=== PATIENT | male | born 1990 | race Two or more races ===

== ENCOUNTER 2023-03-12 08:04 | Outpatient (AMB) | payer OTHER, SELFPAY ==
--- NOTE | 2023-03-12 08:18 | A.OFFPC_ITS ---
Vital Signs 03/12/23 08:20 Height 6 ft 4 in Weight 205 lb BMI 25.0 BP 116/80 Blood Pressure Location Lt brachial Position Sitting Pulse 57 Pulse Source Pulse Oximeter Pulse Oximetry (%) 98 Oxygen Delivery Method Room Air Intake Visit Reasons: [facility] 11/08 enlarge pancreas Intake Note: Patient here for [facility] [place]08 Elarged Pancreas, c/o varicose veins Crab Backer Required: No Crab Backer Name: Kika [id number] Accompanied by: Self / Same As Patient Allergies No Known Allergies Allergy (Verified 03/12/23 08:23) Tobacco use date assessed: 03/12/23 Dental Screening Dental Screen Date: 03/12/23 Did you have a dental visit in the last 12 months?: No Did you have a dental problem in the last 6 months where you did not have access to dental care?: No Was dental information given to patient?: Patient has dentist HPI HPI Comments History of Present Illness Details 32-year-old male new patient presents today to establish care. Patient was seen at [facility] emergency room in October 2022 for left upper quadrant abdominal pain x3 days and nausea. Lab work unremarkable patient was treated with Maalox, lidocaine famotidine and Zofran. Abdominal CT showed mild splenomegaly of unclear etiology. Mononucleosis testing was sent. Patient denies any nausea, vomiting, constipation diarrhea and denies any left upper quadrant pain. Patient reports large vein in leg x10 years and feels like its getting bigger. Denies any pain, no warmth on palpation. Patient requesting to see a vascular doctor to discuss removal. Patient also reports left inguinal hernia, denies any pain states has a lump there. Will place referral to general surgery for further evaluation of this. [facility] Surgical History History of hand surgery Family History Mother No problems noted. Father No problems noted. Social History Housing: House Alcohol intake: never Patient Tobacco Use Status: Never used Tobacco e-Cigarette/Vaping Use: Never Used Second Hand Smoke Exposure: No service: No Current occupational status: employed Current occupational exposures/hazards: No Cognitive needs: No Hearing needs: No Vision needs: No Questionnaire PHQ-9 Over the last 2 weeks, how often have you been bothered by any of the following problems? 1. Little interest or pleasure in doing things: not at all 2. Feeling down, depressed, or hopeless: not at all 3. Trouble falling or staying asleep, or sleeping too much: not at all 4. Feeling tired or having little energy: not at all 5. Poor appetite or overeating: not at all 6. Feeling bad about yourself - or that you are a failure or have let yourself or your family down: not at all 7. Trouble concentrating on things, such as reading the newspaper or watching television: not at all 8. Moving or speaking so slowly that other people could have noticed. Or the opposite - being so fidgety or restless that you have been moving around a lot more than usual: not at all 9. Thoughts that you would be better off or of hurting yourself in some way: not at all Total score: 0 Depression Screening Interpretation: Negative 64055 - PHQ-9 Billing: Yes Source: Developed by Drs. Axel Payne, Paulina Theodore, Alon Pichardo and colleagues, with an educational aditya from [employer]. Thrive Questionnaire Date Thrive assessed: 03/12/23 I am a: Patient What is your living situation today?: I have a steady place to live Within the past 12 months, did the food you bought not last and you didn't have the money to get more?: Never true Within the past 12 months, did you worry whether your food would run out before you got money to buy more?: Never true Do you have trouble paying for medicines?: No Do you have trouble getting transportation to medical appointments?: No Do you have trouble paying your heating and electricity bill?: No Do you have trouble taking care of your child, family member or friend?: No Do you have trouble with day-to-day activities such as bathing, preparing meals, shopping, managing finances, etc.?: No Are you currently unemployed and looking for a job?: No Are you interested in more education?: No Please select the resources that you would like help with: None Currently or been in a relationship where the following occur: no concerns reported AUDIT C Alcohol Use Questionnaire (AUDIT-C) 1. How often do you have a drink containing alcohol?: Never Total Score: 0 CRUZ-7 AMB Questionnaire CRZU-7 Date CRUZ - 7 assessed: 03/12/23 Feeling nervous, anxious, or on edge: 0 = Not at all Not being able to stop or control worryin = Not at all Worrying too much about different things: 0 = Not at all Trouble relaxin = Not at all Being so restless that it is hard to sit still: 0 = Not at all Becoming easily annoyed or irritable: 0 = Not at all Feeling afraid as if something awful might happen: 0 = Not at all Total CRUZ-7 score (0-4 normal; 5-9 mild; 10-14 moderate; 15-21 severe): 0 Source: Developed by Drs. Axel Payne, Paulina Theodore, Alon Pichardo and colleagues, with an educational aditya from [employer]. CRUZ-7 Assessment Billing CRUZ-7 Assessment Tool: CRUZ-7 Assessment 37246 Review of Systems Const Denies chills, Denies fatigue, Denies fever(s) and Denies poor appetite Eyes Denies no additional complaints ENT Reports Normal hearing present Card Denies chest pain, Denies syncope, Denies rapid heart rate and Denies dyspnea Resp Denies cough and Denies dyspnea GI Denies change in stool character, Denies constipation, Denies diarrhea, Denies nausea, Denies vomiting and Reports other (Hernia ) Denies dysuria, Denies urinary frequency and Denies urinary urgency Neuro Reports Normal hearing present, Denies confusion and Denies syncope Psych Denies confusion Endo Denies fatigue Physical exam (Primary Care) Vital Signs: Last Vital Signs Pulse 57 03/12/23 08:20 BP 116/80 03/12/23 08:20 Pulse Ox 98 03/12/23 08:20 Oxygen Delivery Method Room Air 03/12/23 08:20 BMI result Body Mass Index 25.0 Tobacco/Smoking Status: Tobacco use Status Tobacco use date assessed 03/12/23 03/12/23 08:29 Patient Tobacco Use Status Never used Tobacco 03/12/23 08:29 e-Cigarette/Vaping Use Never Used 03/12/23 08:29 PHQ-9: PHQ-9 Score PHQ-9: Total score 0 03/12/23 08:59 Depression Screening Interpretation: Negative Thrive Assessment: Date of Thrive Assessment Date Thrive assessed 03/12/23 03/12/23 08:29 Currently or been in a relationship where the following occur: no concerns reported Const General: No confusion Orientation/consciousness: No confusion HENMT Head: Yes normocephalic and Yes atraumatic Eyes Conjunctivae: conjunctivae normal Chest Chest palpation & inspection: normal inspection of the chest Resp Effort & Inspection: normal respiratory effort Auscultation: clear to auscultation bilaterally, no crackles, no rhonchi and no wheezes Cardio Rate: regular rate Rhythm: regular rhythm Heart sounds: S1 normal heart sound present and S2 normal heart sound present GI Inspection: Yes normal to inspection Palpation (GI): Soft to palpation, nontender, no hepatosplenomegaly and Hernia present direct inguinal on the left Neuro General: No confusion Cranial nerves: Yes Normal hearing present Extrem General: No edema Assessment and Plan Assessment & Plan (1) Phlebitis of left leg: Code(s): I80.3 - Phlebitis and thrombophlebitis of lower extremities, unspecified Plan: Referral inter to vascular surgery. (2) Left inguinal hernia: Code(s): K40.90 - Unilateral inguinal hernia, without obstruction or gangrene, not specified as recurrent Plan: Referral entered to general surgery. Plan Follow-up in a couple months for physical exam. Orders: Orders Comprehensive [place]. Panel Fast Today Z13.1 - Encounter for screening for diabetes mellitus Lipid Panel Today Z13.220 - Encounter for screening for lipoid disorders TSH reflex Free T4 Today Z13.29 - Encounter for screening for other suspected endocrine disorder Complete Blood Count Auto Diff Today Z13.0 - Encounter for screening for diseases of the blood and blood-forming organs and certain disorders involving the immune mechanism Referrals General Surgery Referral K40.90 - Unilateral inguinal hernia, without obstruction or gangrene, not specified as recurrent Vascular Surgery Referral K40.90 - Unilateral inguinal hernia, without obstruction or gangrene, not specified as recurrent Coding Level of Care Code New Pt Level 3 (39471) Diagnoses Phlebitis of left leg I80.3 Left inguinal hernia K40.90 Additional Codes CRUZ-7 Assessment Billing - CRUZ-7 Assessment Tool: CRUZ-7 Assessment 79646 ([id number])
[2023-03-12 08:20] VITALS: BP 116/80; PULSE 57; O2SAT 98; BMI 25.0
== END 2023-03-12 08:56 | disposition home or self-care (01) ==
PROVIDERS: PCP Internal Medicine; Visit Provider Nurse Practitioner Family
DX: I80.3 Phlebitis and thrombophlebitis of lower extremities, unspecified (principal); K40.90 Unilateral inguinal hernia, without obstruction or gangrene, not specified as recurrent
CPT/HCPCS: 99203

== ENCOUNTER 2023-03-12 09:02 | Outpatient (REF) | payer OTHER, SELFPAY ==
[2023-03-12 10:31] LABS: Basophils Percent Auto 0.4 % (0-2); Eosinophils Absolute Auto 0.1 X10*3/uL (0.0-0.4); Eosinophils Percent Auto 0.7 % (0-4); Hematocrit 42.7 % (42.0-52.0); Hemoglobin 14.2 g/dl (14.0-18.0); Imm Gran Abs Auto 0.01 X10*3/uL (0.00-0.03); Imm Gran Pct Auto 0.1 % (0.0-0.4); Lymphocytes Absolute Auto 1.8 X10*3/uL (1.2-4.9); Lymphocytes Percent Auto 26.9 % (20-40); MANUAL DIFF FLAG NO; Mean Corpuscular HGB Conc 33.3 g/dl (31.0-36.0); Mean Corpuscular Hemoglobin 29.8 pg (27.0-33.0); Mean Corpuscular Volume 89.5 fL (80.0-98.0); Mean Platelet Volume 10.9 fL (9.4-12.4); Monocytes Absolute Auto 0.4 X10*3/uL (0.1-1.2); Monocytes Percent Auto 5.7 % (2-11); Neutrophils Absolute Auto 4.4 x10*3/uL (2.0-8.3); Neutrophils Percent Auto 66.2 % (45-73); Platelet Count 182 X10*3/uL (160-400); Red Blood Count 4.77 X10*6/uL (4.60-5.80); Red Cell Distribution Width 12.8 % (11.0-16.0); White Blood Count 6.7 X10*3/uL (4.8-10.8)
[2023-03-12 11:10] LABS: Alanine Aminotransferase 17 U/L (0-40); Albumin Level 4.4 g/dL (3.5-5.0); Alkaline Phosphatase 48 U/L (39-117); Anion Gap 8 (12-20); Aspartate Amino Transferase 20 U/L (5-37); Bilirubin Total 0.7 mg/dL (0.0-1.0); Blood Urea Nitrogen 14 mg/dL (9-16); Calcium 9.3 mg/dL (8.4-10.2); Carbon Dioxide 32 mmol/L (22-29); Chloride 104 mmol/L (96-108); Cholesterol 148 mg/dL; Estimated Glomerular Filt Rate > 60; Glucose Fasting 78 mg/dL (60-99); HDL Cholesterol 47 mg/dL; LDL Cholesterol Calculated 90 mg/dl; Sodium 140 mmol/L (135-145); Total Protein 7.3 g/dL (6.5-8.0); Triglycerides 57 mg/dL
[2023-03-12 11:30] LABS: TSH reflex Free T4 1.51 uIU/mL (0.32-4.0)
== END 2023-03-12 09:03 | disposition home or self-care (01) ==
LOC: HO.LAB 09:02
PROVIDERS: PCP Internal Medicine; Visit Provider Nurse Practitioner Family
DX: Z13.0 Encounter for screening for diseases of the blood and blood-forming organs and certain disorders involving the immune mechanism (principal); Z13.220 Encounter for screening for lipoid disorders; Z13.29 Encounter for screening for other suspected endocrine disorder
CPT/HCPCS: 36415; 80053; 80061; 84443; 85025

== ENCOUNTER 2023-03-26 11:15 | Outpatient (AMB) | payer OTHER, SELFPAY ==
[2023-03-26 11:17] VITALS: BP 118/67; PULSE 38; BMI 25.3
--- NOTE | 2023-03-26 11:17 | MHC.OFFVIS ---
Intake Vital Signs 03/26/23 11:17 Height 6 ft 4 in Weight 208 lb BMI 25.3 BP 118/67 Blood Pressure Location Rt brachial Position Sitting Pulse 38 L Intake Visit Reasons: Unilateral inguinal hernia Intake Note: This patient presents for an assessment for left inguinal hernia repair. Patient c/o; left groin, denies pain. Deck Specialist Required: No Accompanied by: Self / Same As Patient Allergies No Known Allergies Allergy (Verified 03/26/23 11:24) HPI HPI Comments History of Present Illness Details Patient presents for evaluation of a longstanding symptomatic left inguinal hernia. He states that has entered into his scrotum. It is increasing in size, and painful. Patient has no other significant past medical or surgical history contributory.. Chart was reviewed patient evaluated. [facility] Surgical History History of hand surgery Family History Mother No problems noted. Father No problems noted. Social History Housing: House Alcohol intake: never Patient Tobacco Use Status: Never used Tobacco e-Cigarette/Vaping Use: Never Used Second Hand Smoke Exposure: No service: No Current occupational status: employed Current occupational exposures/hazards: No Cognitive needs: No Hearing needs: No Vision needs: No Physical Exam Vital Signs: Last Vital Signs Pulse 38 L 03/26/23 11:17 BP 118/67 03/26/23 11:17 BMI result Body Mass Index 25.3 Const Other: Tall thin well-developed male Chest Other: Chest breath sounds bilaterally, HS 1 in 2 GI Other: Patient was examined both supine and standing with Valsalva. Abdomen soft benign. Right groin negative. Genitalia within normal limits. Very large/complete/scrotal left inguinal hernia. Irreducible. Assessment & Plan Assessment & Plan (1) Left inguinal hernia: Code(s): K40.90 - Unilateral inguinal hernia, without obstruction or gangrene, not specified as recurrent Plan Risks, benefits, alternatives of open left inguinal hernia repair with mesh were reviewed with the patient and included but not limited to bleeding, infection, recurrence, numbness, pain, scarring, and the patient wishes to proceed. All questions were answered. Arrangements will be made for this. Coding Level of Care Code New Pt Level 5 (52598) Diagnoses Left inguinal hernia K40.90
== END 2023-03-26 11:37 | disposition home or self-care (01) ==
PROVIDERS: PCP Internal Medicine; Referring Provider Nurse Practitioner Family; Visit Provider Surgery
DX: K40.90 Unilateral inguinal hernia, without obstruction or gangrene, not specified as recurrent (principal)
CPT/HCPCS: 99204

== ENCOUNTER → 2023-03-26 11:15 | Outpatient (BNVA) | payer OTHER, SELFPAY | PROVIDERS: PCP Internal Medicine; Referring Provider Nurse Practitioner Family; Visit Provider Surgery ==

== ENCOUNTER 2023-04-02 08:16 | Day surgery (SDC) | payer OTHER, SELFPAY ==
--- NOTE | 2023-04-01 09:22 | HO.ANESPROP2 ---
Documented by User: Nu Bonds NP 04/01/23 09:23 HPI - Anesthesia Eval Consult details Narrative: 32yo M for Left Open Left Hernia Repair Inguinal w/ mesh PMFSH Active Problems Active Problems: All Active Problems (Updated 03/26/23 @ 11:36 by Ras Simmons MD) Phlebitis of left leg (Acute) Left inguinal hernia (Acute) Family History Family History Mother No problems noted. Father No problems noted. Surgical History Surgical History History of hand surgery Social History Social History Housing: House Alcohol intake: never Patient Tobacco Use Status: Never used Tobacco e-Cigarette/Vaping Use: Never Used Second Hand Smoke Exposure: No Are you DNR?: No Advance Directives: No Advance Directives Information Provided: Yes Nutrition Risks: No Nutritional Risk service: No Current occupational status: employed Current occupational exposures/hazards: No Cognitive needs: No Hearing needs: No Vision needs: No Meds Allergies Allergy/AdvReac Type Severity Reaction Status Date / Time No Known Allergies Allergy Verified 04/02/23 09:35 Exam Exam Date and Time: April 01, [id number] Pertinent Lab Results Pertinent Lab Results: Laboratory Tests 03/12/23 03/12/23 09:14 Unknown WBC 6.7 Hgb 14.2 Hct 42.7 Plt Count 182 Sodium 140 Potassium 4.0 Chloride 104 Carbon Dioxide 32 H BUN 14 Creatinine 0.82 Assessment and Plan Assessment Anesthesia Assessment: Chart Reviewed Documented by User: Latia Gutierrez MD 04/02/23 10:02 PMFSH Family History Family History Mother No problems noted. Father No problems noted. Surgical History Surgical History History of hand surgery History of Problems with Anesthesia: No Social History Social History Housing: House Alcohol intake: never Patient Tobacco Use Status: Never used Tobacco e-Cigarette/Vaping Use: Never Used Second Hand Smoke Exposure: No Are you DNR?: No Advance Directives: No Advance Directives Information Provided: Yes Nutrition Risks: No Nutritional Risk service: No Current occupational status: employed Current occupational exposures/hazards: No Cognitive needs: No Hearing needs: No Vision needs: No Meds Allergies Allergy/AdvReac Type Severity Reaction Status Date / Time No Known Allergies Allergy Verified 04/02/23 09:35 Exam Airway Mallampati Class: II TM Dist: >3cm Neck ROM: Full Loose/Missing/Broken Teeth: No Heart: RRR Lungs: CTA Assessment and Plan Assessment Anesthesia Assessment: Anesthesia Plan Discussed Final Anesthetic Review History of Problems with Anesthesia: No NPO: Yes ASA Class: I Final Preanesthetic Review: Meds/Allgs Chart Reviewed, Consent Obtained/Reviewed and Anes Risks/Benef Reviewed Patient Risk: Low Procedure Risk: Low Anesthetic Plan Anesthetic Plan: GA Disposition: Standard PACU
--- NOTE | 2023-04-01 09:41 | MHC.SHP ---
Pre-Procedural Eval Section A Date of Service: 04/01/23 The patient is an INPATIENT: No Changes since office visit: No Cold of Flu in the past 2 weeks, No New Medical Problems, No Changes in Medication and No Patient answered all questions The History & Physical has been completed within 30 days and I have reviewed it.: Yes Section B Chief Complaint: Unilateral inguinal hernia, without obstruction Allergies: Allergies Allergy/AdvReac Type Severity Reaction Status Date / Time No Known Allergies Allergy Verified 03/26/23 11:24 Plan I have reviewed the history and physical and performed a pertinent physical examination on my patient. No changes have occurred unless specified. Time Spent With Patient Time: Total time managing care of this patient today ____ minutes.
[2023-04-02] VITALS (9 sets, daily range): BP systolic 118–131; BP diastolic 68–80; PULSE 44–75; RESP 16–18; TEMP 36.4–36.8; O2SAT 97–99; BMI 25.3
[2023-04-02] MEDS: Lactated Ringers 1,000 ML 100 ML IVCONT (08:43)
--- NOTE | 2023-04-02 11:06 | W.PM.OPN ---
Operative Note Operative Note Date of Service: 04/02/23 Narrative: Preoperative diagnosis: [] Left large complete/scrotal inguinal hernia Postop diagnosis: [] Same Procedure [] left inguinal herniorrhaphy open with Bard mesh Surgeon: [] [place] Pharmacist Technician: [] Type of Anesthesia: [] General Indication for surgery: [] Left massive indirect complete/scrotal indirect hernia. No direct hernia demonstrated. Findings: [] Patient is brought to the operating room, placed on operative table in supine position, after adequate level of general anesthesia was induced, the left groin and scrotal area were prepped and draped in usual sterile fashion. Using a small left para- inguinal incision, this carried down through skin, subcutaneous tissue, Simón's fascia. External oblique fibers were opened their direction with care to isolate and preserve the iliohypogastric and ilioinguinal nerves throughout the procedure. Spermatic cord was identified and retracted from the field. No direct hernia was demonstrated. Exploration of the cord demonstrated a massive indirect hernia sac which extended into the scrotum. This was from the spermatic cord, and reduced. A Bard plug was placed in the indirect defect and this was sutured inferiorly to the inguinal ligament, and superiorly to the transversalis fascia using interrupted 0 Ethibond suture. At completion of procedure, mesh was in good position , covered the entire inguinal floor as well and internal ring admitted 1 fingertip. Wound was irrigated, secured hemostasis. Wound was closed in the following manner; external oblique fascia was closed using running 2-0 Vicryl suture. Simón's fascia was reapproximated using interrupted 3-0 Vicryl sutures. Interrupted inverted deep dermal 3-0 Vicryl sutures followed by running subcuticular 4-0 Vicryl sutures were placed. Steri-Strips and sterile dressings were applied. The wound was infiltrated with 0.5% Marcaine at completion. Ipsilateral testicle was intrascrotal at completion. Sponge, needle, and instrument counts were reported to be correct. Patient tolerated the procedure well and emerged from anesthesia stable condition. EBL minimal
== END 2023-04-02 13:20 | disposition home or self-care (01) ==
PROVIDERS: PCP Nurse Practitioner Family; Visit Provider Surgery
PROC: (CPT 49505; principal; 2023-04-02 10:50)
DX: K40.90 Unilateral inguinal hernia, without obstruction or gangrene, not specified as recurrent (principal)
CPT/HCPCS: 49505; C1781; J0690; J2250; J2795; J3010

== ENCOUNTER → 2023-04-02 08:16 | Outpatient (BNV) | payer OTHER, SELFPAY | PROVIDERS: PCP Nurse Practitioner Family; Visit Provider Surgery | DX: K40.20 Bilateral inguinal hernia, without obstruction or gangrene, not specified as recurrent (principal) | CPT/HCPCS: 49505 ==

== ENCOUNTER 2023-04-07 15:20 | Emergency (ER) | payer OTHER, SELFPAY ==
--- NOTE | ~2023-04-07 | US_ITS ---
EXAMINATION: US SCROTUM CLINICAL INFORMATION: Status post left scrotal hernia repair. Pain. Suspected abscess.. COMPARISON: None available. TECHNIQUE: A sonogram of the scrotum was performed assessing ni-scale appearance and color Doppler flow. Spectral Doppler analysis of the arterial and venous flow were performed in the testes bilaterally. FINDINGS: RIGHT: Right testicle measures 5.2 x 2.2 x 3.2 cm, volume 19.4 mL. No focal testicular parenchymal lesions are visualized. Spectral Doppler analysis of the arterial and venous flow is normal in the right testis. Right epididymal head is normal in size. No right hydrocele or varicocele is seen. Right epididymal Doppler flow is normal. LEFT: Left testicle measures 4.6 x 2.6 x 3.7 cm, volume 23 mL. No focal testicular parenchymal lesions are visualized. Spectral Doppler analysis of the arterial and venous flow is normal in the left testis. Left epididymal head is normal in size. Trace amount of left-sided hydrocele. No evidence of any varicocele. Left epididymal Doppler flow is normal. Within the superior part of the left hemiscrotum heterogeneous mixed echogenic solid-appearing structure is identified associated with predominantly peripheral increased vascularity. Given the history of recent surgery, may represent postsurgical changes including resolving hematoma and less likely to be evolving phlegmon. No definite evidence of any complex fluid collection to suspect abscess is noted. US/US scrotum IMPRESSION: 1. Nonspecific heterogeneous mixed echogenic solid-appearing structure is identified within the superior part of the left hemiscrotum with predominantly peripheral increased vascularity.Given the history of recent surgery, may represent postsurgical changes including resolving hematoma and less likely to be evolving phlegmon. No definite evidence of any complex fluid collection to suspect abscess is noted. 2. Small volume left-sided hydrocele. 3. Both testicles and epididymis morphologically appear unremarkable and show normal Doppler flow.
--- NOTE | ~2023-04-07 | US_ITS ---
EXAMINATION: US SCROTUM CLINICAL INFORMATION: Status post left scrotal hernia repair. Pain. Suspected abscess.. COMPARISON: None available. TECHNIQUE: A sonogram of the scrotum was performed assessing ni-scale appearance and color Doppler flow. Spectral Doppler analysis of the arterial and venous flow were performed in the testes bilaterally. FINDINGS: RIGHT: Right testicle measures 5.2 x 2.2 x 3.2 cm, volume 19.4 mL. No focal testicular parenchymal lesions are visualized. Spectral Doppler analysis of the arterial and venous flow is normal in the right testis. Right epididymal head is normal in size. No right hydrocele or varicocele is seen. Right epididymal Doppler flow is normal. LEFT: Left testicle measures 4.6 x 2.6 x 3.7 cm, volume 23 mL. No focal testicular parenchymal lesions are visualized. Spectral Doppler analysis of the arterial and venous flow is normal in the left testis. Left epididymal head is normal in size. Trace amount of left-sided hydrocele. No evidence of any varicocele. Left epididymal Doppler flow is normal. Within the superior part of the left hemiscrotum heterogeneous mixed echogenic solid-appearing structure is identified associated with predominantly peripheral increased vascularity. Given the history of recent surgery, may represent postsurgical changes including resolving hematoma and less likely to be evolving phlegmon. No definite evidence of any complex fluid collection to suspect abscess is noted. US/US scrotum doppler IMPRESSION: 1. Nonspecific heterogeneous mixed echogenic solid-appearing structure is identified within the superior part of the left hemiscrotum with predominantly peripheral increased vascularity.Given the history of recent surgery, may represent postsurgical changes including resolving hematoma and less likely to be evolving phlegmon. No definite evidence of any complex fluid collection to suspect abscess is noted. 2. Small volume left-sided hydrocele. 3. Both testicles and epididymis morphologically appear unremarkable and show normal Doppler flow.
[2023-04-07 16:28] VITALS: BP 117/78; PULSE 67; RESP 18; TEMP 36.7; O2SAT 99; BMI 24.3
--- NOTE | 2023-04-07 16:40 | ED.GENADULT ---
HPI - General Adult General Chief complaint: General Medical Stated complaint: Hernia surgery04/02 having pain Time Seen by Provider: 04/07/23 21:09 Source: patient Mode of arrival: ambulatory Limitations: no limitations History of Present Illness HPI narrative: Patient status post left hernia surgery with mesh placement on 04/02/2023 for last 2 days noticed increased swelling left scrotal area with increased pain no fever no chills Related Data Previous Rx's Medication Instructions Recorded hydrocodone 5 mg-acetaminophen 325 1 tab PO Q4-6H PRN pain #30 tabs 04/02/23 mg tablet ibuprofen 600 mg tablet 600 mg PO Q6H PRN fever or pain 04/07/23 #30 tabs Allergies Allergy/AdvReac Type Severity Reaction Status Date / Time No Known Allergies Allergy Verified 04/02/23 09:35 Review of Systems Review of Systems: Yes all other systems are reviewed and are negative [facility] Past Medical History Surgical History History of hand surgery History of hernia repair (~04/02/23) Family History Family History Mother No problems noted. Father No problems noted. Social History Social History Housing: House Alcohol intake: never Patient Tobacco Use Status: Never used Tobacco e-Cigarette/Vaping Use: Never Used Second Hand Smoke Exposure: No service: No Current occupational status: employed Current occupational exposures/hazards: No Cognitive needs: No Hearing needs: No Vision needs: No Physical Exam ED Vital Signs: Vital Signs - 24 hr 04/07/23 16:28 04/07/23 20:12 Temperature 98.1 F 98.1 F Pulse Rate 67 59 Respiratory Rate 18 18 Blood Pressure 117/78 117/70 Pulse Oximetry 99 100 Oxygen Delivery Method Room Air Room Air BMI result Body Mass Index 24.3 Appearance: Alert. Oriented X3. No acute distress. Eyes: PERRLA, No Nystagmus ENT: Pharynx normal. Oral Mucosa moist Neck: Normal inspection. Neck supple. CVS: Normal heart rate and rhythm. Pulses normal. Respiratory: No respiratory distress. Equal air entry bilateral, no wheezing/rales/rhonchi Abdomen: Soft and nontender. Bowel sounds are present, no mass palpable, no CVA tenderness : Ecchymosis and swelling of left scrotum, mild tenderness Skin: Skin warm and dry. Normal skin color. Normal skin turgor. Extremities: No lower extremity edema. No calf tenderness Neuro: Oriented X 3. No motor deficit. Course Course Course Narrative: RME: 32 yold male presents to the ED left scrotal discomfort. patient is s/p scrotal/groin hernia repair. hernia wound in wound appears healhty and healing. labs and scrotal ultrasoun doredered Medications Administered Discontinued Medications Generic Name Dose Route Start Last Admin Trade Name Freq PRN Reason Stop Dose Admin Ketorolac Tromethamine 30 mg 04/07/23 21:56 04/07/23 22:06 Ketorolac Tromethamine 30 Mg/Ml Vial IVPUSH 04/07/23 21:57 30 mg ONCE ONE Administration Medical Decision Making Medical Decision Making [facility] Narrative: Ultrasound showed postop changes white counts normal no signs of infection patient advised to follow with surgeon Differential Diagnosis Hematoma/abscess/epididymitis Lab Data [facility] Lab Attestation statement: I reviewed the patient's lab results. 04/07/23 16:49 04/07/23 16:49 Labs: Lab Results 04/07/23 04/07/23 Range/Units 16:49 16:49 WBC 6.8 (4.8-10.8) X10*3/uL RBC 5.12 (4.60-5.80) X10*6/uL Hgb 14.9 (14.0-18.0) g/dl Hct 44.0 (42.0-52.0) % MCV 85.9 (80.0-98.0) fL MCH 29.1 (27.0-33.0) pg MCHC 33.9 (31.0-36.0) g/dl RDW 12.5 (11.0-16.0) % Plt Count 205 (160-400) X10*3/uL MPV 10.1 (9.4-12.4) fL Immature Gran % (Auto) 0.3 (0.0-0.4) % Neut % (Auto) 67.1 (45-73) % Lymph % (Auto) 23.5 (20-40) % [place] % (Auto) 7.9 (2-11) % Eos % (Auto) 0.9 (0-4) % Baso % (Auto) 0.3 (0-2) % Lymph # (Auto) 1.6 (1.2-4.9) X10*3/uL [place] # (Auto) 0.5 (0.1-1.2) X10*3/uL Eos # (Auto) 0.1 (0.0-0.4) X10*3/uL Baso # (Auto) 0.0 (0.0-0.2) X10*3/uL Abs Immat Gran (auto) 0.02 (0.00-0.03) X10*3/uL Absolute Neuts (auto) 4.6 (2.0-8.3) x10*3/uL Absolute Nucleated RBC 0.000 (0.0-0.012) X10*3/uL Nucleated RBC % (auto) 0.0 (0.0-0.2) /100WBC Sodium 141 (135-145) mmol/L Potassium 4.6 (3.3-5.1) mmol/L Chloride 105 (96-108) mmol/L Carbon Dioxide 26 (22-29) mmol/L Anion Gap 15 (12-20) BUN 17 H (9-16) mg/dL Creatinine 0.89 (0.5-1.4) mg/dL Estim Creat Clear Calc 146.2 Estimated GFR > 60 Random Glucose 87 (60-115) mg/dL Calcium 9.8 (8.4-10.2) mg/dL Total Bilirubin 0.4 (0.0-1.0) mg/dL AST 15 (5-37) U/L ALT 14 (0-40) U/L Alkaline Phosphatase 54 (39-117) U/L Total Protein 7.8 (6.5-8.0) g/dL Albumin 4.4 (3.5-5.0) g/dL Radiology Impression Discussion of test interpretation with radiology: I have reviewed the radiologist's reading. Radiologist Impression: US/US scrotum doppler IMPRESSION: ? 1. Nonspecific heterogeneous mixed echogenic solid-appearing structure is identified within the superior part of the left hemiscrotum with predominantly peripheral increased vascularity.Given the history of recent surgery, may represent postsurgical changes including resolving hematoma and less likely to be evolving phlegmon. No definite evidence of any complex fluid collection to suspect abscess is noted. 2. Small volume left-sided hydrocele. 3. Both testicles and epididymis morphologically appear unremarkable and show normal Doppler flow. Discharge Plan Discharge Clinical Impression: Seroma, post-traumatic Patient Disposition: Home, Self-Care Instructions: Seroma (DC) Additional Instructions: The swelling of your scrotum is from the surgery and the fluid collection which will go way off its own with time Continue taking her pain medication Do not stand for long hours Take ibuprofen for increased pain Prescriptions: New ibuprofen 600 mg tablet 600 mg PO Q6H PRN (Reason: fever or pain) Qty: 30 0RF No Action hydrocodone-acetaminophen 5-325 mg tablet 1 tab PO Q4-6H PRN (Reason: pain) Qty: 30 0RF Rx Instructions: Partial Fill upon patient request. Interventions: ED Discharge Assessment Last Done: 04/07/23 22:13 Discharge Date/Time: 04/07/23 22:14
[2023-04-07 16:54] LABS: MANUAL DIFF FLAG NO
[2023-04-07 16:55] LABS: Basophils Percent Auto 0.3 % (0-2); Eosinophils Absolute Auto 0.1 X10*3/uL (0.0-0.4); Eosinophils Percent Auto 0.9 % (0-4); Hemoglobin 14.9 g/dl (14.0-18.0); Imm Gran Abs Auto 0.02 X10*3/uL (0.00-0.03); Imm Gran Pct Auto 0.3 % (0.0-0.4); Lymphocytes Absolute Auto 1.6 X10*3/uL (1.2-4.9); Lymphocytes Percent Auto 23.5 % (20-40); Mean Corpuscular HGB Conc 33.9 g/dl (31.0-36.0); Mean Corpuscular Hemoglobin 29.1 pg (27.0-33.0); Mean Corpuscular Volume 85.9 fL (80.0-98.0); Mean Platelet Volume 10.1 fL (9.4-12.4); Monocytes Absolute Auto 0.5 X10*3/uL (0.1-1.2); Monocytes Percent Auto 7.9 % (2-11); Neutrophils Absolute Auto 4.6 x10*3/uL (2.0-8.3); Neutrophils Percent Auto 67.1 % (45-73); Platelet Count 205 X10*3/uL (160-400); Red Blood Count 5.12 X10*6/uL (4.60-5.80); Red Cell Distribution Width 12.5 % (11.0-16.0); White Blood Count 6.8 X10*3/uL (4.8-10.8)
[2023-04-07 17:13] LABS: Alanine Aminotransferase 14 U/L (0-40); Albumin Level 4.4 g/dL (3.5-5.0); Alkaline Phosphatase 54 U/L (39-117); Anion Gap 15 (12-20); Aspartate Amino Transferase 15 U/L (5-37); Bilirubin Total 0.4 mg/dL (0.0-1.0); Blood Urea Nitrogen 17 mg/dL (9-16); Calcium 9.8 mg/dL (8.4-10.2); Carbon Dioxide 26 mmol/L (22-29); Chloride 105 mmol/L (96-108); Creatinine Clr Calc Pharmacy 146.2; Estimated Glomerular Filt Rate > 60; Glucose Random 87 mg/dL (60-115); Potassium 4.6 mmol/L (3.3-5.1); Sodium 141 mmol/L (135-145); Total Protein 7.8 g/dL (6.5-8.0)
--- OUTSIDE RECORDS SUMMARY | 2023-04-07 17:24 | XMS_ITS | Continuity of Care Document ---
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 Name Role Phone Not on Staff, PCP Primary Care Physician Unavail able [place] [facility] [place]): [place] - 11/06/[address] [address]- Discharge Disposition: A-D/C Home Attending Physician: Hao Chanel MD Admitting Physician: Hao Chanel MD Referring Physician: Not on Staff, Referring MD Allergies, Adverse Reactions, Alerts No Known Medication Allergies Results Radiology Reports * Exam Date Time Procedure Performing Provider Status 11/06/22 1:[address] Abd/Pelvis W/ IV Contrast Only Harriett Rojas; Licha (Verified) Notes: (CT Abd/Pelvis W/ IV Contrast Only) Reason For Exam: LUQ abdominal pain;Other: RESULT: CT Abd/Pelvis W/ IV Contrast Only CT Abd/Pelvis W/ IV Contrast Only Hx of Present Illness: LUQ pain started x 1 week with abd bloating. No N V D. endorses chills. Unknown fever. No urinary issues. Last BM yesterday was normal for him. Pain worsens with eating. as we talk admits that pain is also L chest w radiation to the back TECHNIQUE: Spiral CT through the abdomen and pelvis with IV contrast formatted in 3 planes. 100 cc of Omnipaque 300 was administered intravenously. This study was performed without oral contrast. Weight-based protocol using automatic tube modulation was used to optimize exposure parameters. CTDIvol Body: 14.80 mGy, DLP Body: 806 mGy*cm. COMPARISON: None. FINDINGS: Machine Setter View Findings, Lines and Tubes: None. Visualized Chest: Lung bases are clear. No pleural effusion. The heart is normal in size. No pericardial effusion. Diaphragm: Normal. Liver: Enlarged measuring 21.3 cm. Gallbladder: No CT evidence of gallbladder pathology. Bile ducts: No biliary ductal dilation. Spleen: Mildly enlarged spleen measuring 13.2 cm (series 202:45). Pancreas: Normal. Adrenal glands: Normal. Kidneys and ureters: No hydronephrosis, stones, or suspicious masses. Bladder: Normal. Reproductive organs: Unremarkable. Stomach, small bowel, and large bowel: Normal. Appendix: Normal. Peritoneum and retroperitoneum: No ascites or pneumoperitoneum. No omental or mesenteric lesions. Lymph nodes: No enlarged lymph nodes. Blood vessels: Normal. No aneurysm. No evidence of venous thrombosis. Abdominal and pelvic wall: Small left fat-containing inguinal hernia. Bones: No acute abnormality. IMPRESSION: No acute process in the abdomen or pelvis. Hepatosplenomegaly with liver measuring 21.3 cm and the spleen measuring 13.2 cm. I have personally reviewed the images and I agree with this report. WSN: [id number] Ordering Physician: Cindi Johnson Dictated By: Larry Levi MD Dictated Date/Time: 11/06/22 7:28 am Reviewed By: Audi Maher MD Signed By: Audi Maher MD Signed Date/Time: 11/06/22 7:33 am Transcribed By: KHALIDA Transcribed Date/Time: 11/06/22 1:35 am Vital Signs Most recent to oldest [Reference Range]: 1 2 3 Oxygen Saturation [94-100 %] 100 % (11/06/22 4:37 AM) 100 % (11/06/22 2:46 AM) 100 % (11/05/22 8:46 PM) Pulse Rate [55-90 bpm] 52 bpm *L* (11/06/22 4:37 AM) 60 bpm (11/06/22 2:46 AM) 52 bpm *L* (11/05/22 8:46 PM) Blood Pressure [90-138/55-84 mm Hg] 115/97mm Hg (11/06/22 4:37 AM) 108/65mm Hg (11/06/22 2:46 AM) 112/62mm Hg (11/05/22 8:46 PM) Respiratory Rate [16-30 br/min] 18 br/min (11/05/22 8:46 PM) 16 br/min (11/05/22 11:56 AM) Temperature [96.8-100.4 DegF] 97.7 DegF (11/06/22 4:37 AM) 97.7 DegF (11/06/22 2:46 AM) 98.2 DegF (11/05/22 8:46 PM) Mode of Delivery (Oxygen) Room air (11/06/22 2:46 AM) Room air (11/05/22 8:46 PM) Room air (11/05/22 11:56 AM) Blood pressure sites Arm, right (11/06/22 4:37 AM) Arm, right (11/05/22 8:46 PM) Temperature Route Oral (11/06/22 4:37 AM) Oral (11/06/22 2:46 AM) Oral (11/05/22 8:46 PM) CT Abdomen and Pelvis W contrast IV * BHSP[facility]erscribe , CIS S: TRANSCRIBE Audi Maher MD B: VERIFY Gurmeet GIRALDO, Ahmed: SIGN Event Display: Result: Authored Date: CT Abd/Pelvis W/ IV Contrast Only Hx of Present Illness: LUQ pain started x 1 week with abd bloating. No N V D. endorses chills. Unknown fever. No urinary issues. Last BM yesterday was normal for him. Pain worsens with eating. as we talk admits that pain is also L chest w radiation to the back TECHNIQUE: Spiral CT through the abdomen and pelvis with IV contrast formatted in 3 planes. 100 cc of Omnipaque 300 was administered intravenously. This study was performed without oral contrast. Weight-based protocol using automatic tube modulation was used to optimize exposure parameters. CTDIvol Body: 14.80 mGy, DLP Body: 806 mGy*cm. COMPARISON: None. FINDINGS: Machine Setter View Findings, Lines and Tubes: None. Visualized Chest: Lung bases are clear. No pleural effusion. The heart is normal in size. No pericardial effusion. Diaphragm: Normal. Liver: Enlarged measuring 21.3 cm. Gallbladder: No CT evidence of gallbladder pathology. Bile ducts: No biliary ductal dilation. Spleen: Mildly enlarged spleen measuring 13.2 cm (series 202:45). Pancreas: Normal. Adrenal glands: Normal. Kidneys and ureters: No hydronephrosis, stones, or suspicious masses. Bladder: Normal. Reproductive organs: Unremarkable. Stomach, small bowel, and large bowel: Normal. Appendix: Normal. Peritoneum and retroperitoneum: No ascites or pneumoperitoneum. No omental or mesenteric lesions. Lymph nodes: No enlarged lymph nodes. Blood vessels: Normal. No aneurysm. No evidence of venous thrombosis. Abdominal and pelvic wall: Small left fat-containing inguinal hernia. Bones: No acute abnormality. IMPRESSION: No acute process in the abdomen or pelvis. Hepatosplenomegaly with liver measuring 21.3 cm and the spleen measuring 13.2 cm. I have personally reviewed the images and I agree with this report. WSN: [id number] Ordering Physician: Cindi Johnson Dictated By: Larry Levi MD Dictated Date/Time: 11/06/22 7:28 am Reviewed By: Audi Maher MD Signed By: Audi Maher MD Signed Date/Time: 11/06/22 7:33 am Transcribed By: KHALIDA Transcribed Date/Time: 11/06/22 1:35 am Patient Care team information Care Team Personnel Name: Not on Staff, PCP Position: [facility] Physician (General Medicine) Member Role: PCP Name: Óscar Joe MD Position: [facility] Resident Member Role: ED Resident Address: Address: [address] [place] [address]- Name: Hao Chanel MD Position: [facility] Resident Member Role: Admitting Physician Address: Address: [address] [place] [address] Care Team Related Persons Name: OLIVIA LIVINGSTON
[2023-04-07 20:12] VITALS: BP 117/70; PULSE 59; RESP 18; TEMP 36.7; O2SAT 100
[2023-04-07] MEDS: Ketorolac Tromethamine 30 MG/ML VIAL IVPUSH (22:06)
== END 2023-04-07 22:14 | disposition home or self-care (01) ==
PROVIDERS: Physician Assistant; Emergency Provider Internal Medicine; PCP Surgery
DX: L76.34 Postprocedural seroma of skin and subcutaneous tissue following other procedure (principal); N50.82 Scrotal pain; R10.2 Pelvic and perineal pain; Y83.9 Surgical procedure, unspecified as the cause of abnormal reaction of the patient, or of later complication, without mention of misadventure at the time of the procedure; Y81.3 Surgical instruments, materials and general- and plastic-surgery devices (including sutures) associated with adverse incidents; Z79.899 Other long term (current) drug therapy
CPT/HCPCS: 36415; 76870; 80053; 85025; 93975; 96374; 99284; J1885

== ENCOUNTER 2023-04-08 12:30 | Outpatient (AMB) | payer OTHER, SELFPAY ==
--- NOTE | 2023-04-08 12:39 | MHC.OFFVIS ---
Intake Intake Visit Reasons: S/P LIH w/mesh Allergies No Known Allergies Allergy (Verified 04/02/23 09:35) HPI HPI Comments History of Present Illness Details Patient presents for follow-up. Over the weekend, he was having some incisional discomfort actually went to the emergency room. There, he had extensive workup including CT scan was only demonstrated postop changes. On exam today, aside from incisional discomfort, patient is doing well. He has time his diet. He is having normal bowel habits. He is slowly but steadily increasing his activity level. [facility] Surgical History History of hand surgery History of hernia repair (~04/02/23) Family History Mother No problems noted. Father No problems noted. Social History Housing: House Alcohol intake: never Patient Tobacco Use Status: Never used Tobacco e-Cigarette/Vaping Use: Never Used Second Hand Smoke Exposure: No service: No Current occupational status: employed Current occupational exposures/hazards: No Cognitive needs: No Hearing needs: No Vision needs: No Physical Exam GI Other: Abdomen soft. Incision clean dry and intact healing uneventfully. Mild ecchymosis of the scrotum which was expected secondary to the scrotal/complete hernia which was dissected out of the scrotum at original surgery. Assessment & Plan Assessment & Plan (1) Left inguinal hernia: Code(s): K40.90 - Unilateral inguinal hernia, without obstruction or gangrene, not specified as recurrent Plan Patient is doing well. He has been given local instructions, and will follow-up p.r.n.. Coding Level of Care Code Global (93168) Diagnoses Left inguinal hernia K40.90
== END 2023-04-08 12:39 | disposition home or self-care (01) ==
LOC: HO.HGS 12:30
PROVIDERS: PCP Surgery; Visit Provider Surgery
DX: K40.90 Unilateral inguinal hernia, without obstruction or gangrene, not specified as recurrent (principal)
CPT/HCPCS: 99024

== ENCOUNTER → 2023-04-08 12:30 | Outpatient (BNVA) | payer OTHER, SELFPAY | PROVIDERS: PCP Surgery; Visit Provider Surgery ==

== ENCOUNTER 2023-05-25 16:23 | Emergency (ER) | payer OTHER, SELFPAY ==
[2023-05-25 16:32] VITALS: BP 117/73; PULSE 64; RESP 18; TEMP 36.6; O2SAT 97; BMI 25.9
--- NOTE | 2023-05-25 16:36 | ED.UPPEXIN ---
HPI - Extremity Injury (Upper) General Chief Complaint: Extremity Injury, Upper Stated Complaint: Injury left arm Time Seen by Provider: 05/25/23 16:44 Source: patient Mode of arrival: ambulatory Limitations: no limitations History of Present Illness HPI narrative: 32-year-old male [id number] here with complaints of left elbow pain after a [place] fall at the park today. Patient reports pain in the left elbow. Denies any associated weakness, numbness or tingling of extremity. Denies hitting head or loss of consciousness. Declined chief solution architect services Related Data Previous Rx's Medication Instructions Recorded hydrocodone 5 mg-acetaminophen 325 1 tab PO Q4-6H PRN pain #30 tabs 04/02/23 mg tablet ibuprofen 600 mg tablet 600 mg PO Q6H PRN fever or pain 04/07/23 #30 tabs Allergies Allergy/AdvReac Type Severity Reaction Status Date / Time No Known Allergies Allergy Verified 05/25/23 16:32 Review of Systems Review of Systems: Yes all other systems are reviewed and are negative Constitutional: Constitutional: Reports no additional constitutional complaints, Denies body ache(s), Denies chills, Denies fever(s), Denies headache(s) and Denies weakness Eyes: Eyes: Reports no additional eye complaints and Denies change in vision ENT: Reports system reviewed and no additional complaints, except as documented, Denies dizziness, Denies headache(s), Denies nasal congestion, Denies nasal discharge and Denies neck pain Cardiovascular: Cardiovascular: Reports no additional cardiovascular complaints, Denies chest pain, Denies leg edema and Denies dyspnea Respiratory: Respiratory: Reports no additional respiratory complaints, Denies cough and Denies dyspnea Gastrointestinal: Gastrointestinal: Reports no additional gastrointestinal complaints, Denies abdominal pain, Denies diarrhea, Denies nausea and Denies vomiting Genitourinary: Genitourinary: Denies urinary incontinence Musculoskeletal: Musculoskeletal: Reports no additional musculoskeletal complaints, Denies back pain, Reports arthralgias, Reports joint swelling, Reports limited range of motion, Denies neck pain, Denies numbness and Denies tingling Integumentary/Breasts: Skin/Breast: Reports system reviewed and no additional complaints, except as docu and Denies rash Neurologic: Reports system reviewed and no additional complaints, except as documented, Denies Abnormal speech present, Denies dizziness, Denies headache(s), Denies numbness, Denies tingling and Denies weakness [facility] Past Medical History Attestation statement: The following information was validated with the patient. Source: old records reviewed and nursing notes reviewed Surgical History History of hernia repair (~04/02/23) History of hand surgery Family History Family History Mother No problems noted. Father No problems noted. Social History Social History Housing: House Alcohol intake: never Patient Tobacco Use Status: Never used Tobacco e-Cigarette/Vaping Use: Never Used Second Hand Smoke Exposure: No Advance Directives: No Advance Directives Information Provided: No service: No Current occupational status: employed Current occupational exposures/hazards: No Cognitive needs: No Hearing needs: No Vision needs: No Physical Exam Vital Signs: Vital Signs: Last Vital Signs Temp 97.8 F 05/25/23 16:32 Pulse 64 05/25/23 16:32 Resp 18 05/25/23 16:32 BP 117/73 05/25/23 16:32 Pulse Ox 97 05/25/23 16:32 O2 Del Method Room Air 05/25/23 16:32 BMI result Body Mass Index 25.9 Const: General: cooperative, healthy appearing, comfortable and no acute distress Orientation/consciousness: patient oriented x3 Limitations: no limitations HEENT: Head: Yes normal to inspection Ears: hearing grossly normal bilaterally General nose exam: Normal external nose present Face and sinus: Yes normal facial exam Mouth: Normal oral and palatal mucosa present Throat: Yes posterior oropharynx normal Eyes: General: appearance normal, both eyes and all related structures Pupils: Equal, round and reactive pupils present Neck: Neck: Yes normal visual inspection Chest: Chest palpation & inspection: normal inspection of the chest Resp: Effort & Inspection: normal respiratory effort Auscultation: clear to auscultation bilaterally Cardio: Rate: regular rate Rhythm: regular rhythm Peripheral pulses: Peripheral pulses 2+ throughout GI: Inspection: Yes normal to inspection Palpation (GI): Soft to palpation and nontender Auscultation: normal bowel sounds Back/Spine/Pelvis: Thoracic/Lumbar Spine: thoracic and lumbar spine normal to inspection Skin: General skin exam: no rashes or lesions noted Neuro: General: patient oriented x3, no focal motor deficits and normal sensation to monofilament Cranial nerves: Yes Equal, round and reactive pupils present Cognition (Neuro): normal cognition Speech: No Abnormal speech present Gait exam (Neuro): Normal gait present Motor exam (neuro): 5/5 motor strength present throughout Extrem: Other: To the left elbow to the medial and lateral aspect there is tenderness and swelling. The there is limited flexion and extension due to pain per patient. There is no tenderness or limited range of motion over the proximal distal joints. There is distal sensation which is normal. There are normal radial and ulnar pulses. Course Course Course Narrative: This is an RME: Additional HPI, ROS, PE not included below will be deferred to primary provider. This is a 44-ollf-prk-Sinhala/nigerian speaking male presenting to the emergency department with a complaint of left elbow/forearm pain s/p trip and fall which occurred today. No head strike or LOC. Left elbow with moderate edema and exquisite TTP. Plan: XR L forearm, left elbow Reevaluation(s) Reevaluation #1: X-ray MPRESSION: Acute impacted radial neck fracture with associated joint effusion. patient placed in sugar-tong splint and given sling for home. Reviewed rice. Reviewed worrisome signs and symptoms when to return to the emergency room. Patient feels ibuprofen be adequate for pain control. I did recommend he alternate this with Tylenol. Medical Decision Making Medical Decision Making MDM Narrative: 32-year-old male [id number] here with complaints of left elbow pain after a trip and fall at the park today. Patient reports pain in the left elbow. Denies any associated weakness, numbness or tingling of extremity. Denies hitting head or loss of consciousness. To the left elbow to the medial and lateral aspect there is tenderness and swelling. The there is limited flexion and extension due to pain per patient. There is no tenderness or limited range of motion over the proximal distal joints. There is distal sensation which is normal. There are normal radial and ulnar pulses. Will obtain x-rays Differential Diagnosis Differential Diagnoses: The differential diagnosis associated with the presentation includes fracture, dislocation low concern for vascular injury Admission/Observation Consideration of admission/observation: Escalation of care including admission/observation considered low concern for vascular injury, complicated fracture, dislocation to suggest need for emergent orthopedic consultation Independent Interpretation I performed an independent interpretation of an: Plain X-Ray Interpretation: I independently reviewed the x-ray and agree with radiology report Radiology Impression Discussion of test interpretation with radiology: I have reviewed the radiologist's reading. Radiologist Impression: [address] [address] XRay Report Signed Patient: Saul Youngblood MR#: [id number] : 1990 Acct:[id number] Age/Sex: 32 / M ADM Date: 05/25/23 Loc: HO.ED Attending Dr: Ordering Physician: Marily Sahu Date of Service: 05/25/23 Procedure(s): XR elbow LT min 3V Accession Number(s): [id number] cc: Marily Sahu; Physician,Unknown ~ History: Pain status post fall. Exams: Left forearm 2 views left elbow 3 views FINDINGS: Clips about the wrist radially consistent previous surgery. No deformity of the radius or ulnar. There is an elbow joint effusion. Impacted radial neck fracture is acute. No definite radial head deformity. XR/XR elbow LT min 3V IMPRESSION: Acute impacted radial neck fracture with associated joint effusion. Tests considered The following testing was considered but not selected: no concern for vascular injury, complicated fracture or dislocation to required advanced imaging Prescription Management I considered prescription management with: Pain Medication patient feels ibuprofen will be adequate for pain control Procedures Orthopedic Splinting/Casting Injury #1: Side: left Upper Extremity Injury Location: forearm Upper Extremity Immobilizer: sling/shoulder immobilizer and sugar tong splint Discharge Plan Discharge Clinical Impression: Closed fracture of radial head Patient Disposition: Home, Self-Care Instructions: Arm Fracture in Adults (ED), Splint Care (ED) Additional Instructions: do not get the splint wet. Please use the sling when up and walking around. When you are sitting down take the sling off and elevate the arm. It take Motrin or Tylenol for pain as needed Call Orthopedics on Saturday is a set up an appointment Prescriptions: No Action hydrocodone-acetaminophen 5-325 mg tablet 1 tab PO Q4-6H PRN (Reason: pain) Qty: 30 0RF Rx Instructions: Partial Fill upon patient request. ibuprofen 600 mg tablet 600 mg PO Q6H PRN (Reason: fever or pain) Qty: 30 0RF Referrals: [facility] [place] Orth[facility] Surgeons [Provider Group] - 1 week
--- NOTE | 2023-05-25 16:51 | PC.NURSE ---
pt reports he was taking a walk when it started raining, he ran back to his car but slipped and fell on his left arm. Reports pain just below elbow on forearm. No pain in humerus or wrist at this time. CMS intact. Pt guarding arm against chest at this time with ice pack applied
== END 2023-05-25 18:25 | disposition home or self-care (01) ==
PROVIDERS: Emergency Provider Emergency Medicine
DX: S52.122A Displaced fracture of head of left radius, initial encounter for closed fracture (principal); W01.0XXA Fall on same level from slipping, tripping and stumbling without subsequent striking against object, initial encounter; M25.422 Effusion, left elbow; Y93.9 Activity, unspecified; Y92.830 Public park as the place of occurrence of the external cause; Y99.9 Unspecified external cause status
CPT/HCPCS: 29105; 73080; 73090; 99283; 99284

== ENCOUNTER 2023-06-18 08:31 | Outpatient (AMB) | payer OTHER, SELFPAY ==
[2023-06-18 08:39] VITALS: BP 136/72; PULSE 65; BMI 25.4
--- NOTE | 2023-06-18 08:39 | A.OFFVIS_ITS ---
Intake Vital Signs 06/18/23 08:39 Height 6 ft 4 in Weight 209 lb BMI 25.4 BP 136/72 Blood Pressure Location Rt brachial Position Sitting Pulse 65 Intake Visit Reasons: s/p LIH~ pain Intake Note: Patient here c/o pain on Lt upper groin area that started a month ago. Pain gets worse with physical activity. Sometimes pain when changing positions from lying to sitting. Sap Portal Architect Required: No Accompanied by: Self / Same As Patient Allergies No Known Allergies Allergy (Verified 06/18/23 08:41) HPI HPI Comments History of Present Illness Details Patient presents here status post sustaining a fall where he had a wrist injury and also has some incisional discomfort. He has approximately 2 months status post left inguinal hernia repair. Groin pain is improving. Patient has not noticed any bulge or swelling. He is tolerating a diet. He is having normal bowel habits. He is ambulating with no difficulties. [facility] Surgical History Left inguinal hernia (04/02/23) History of hernia repair (~04/02/23) History of hand surgery Family History Mother No problems noted. Father No problems noted. Social History Housing: House Alcohol intake: never Patient Tobacco Use Status: Never used Tobacco e-Cigarette/Vaping Use: Never Used Second Hand Smoke Exposure: No service: No Current occupational status: employed Current occupational exposures/hazards: No Cognitive needs: No Hearing needs: No Vision needs: No Physical Exam Vital Signs: Last Vital Signs Pulse 65 06/18/23 08:39 BP 136/72 06/18/23 08:39 BMI result Body Mass Index 25.4 GI Other: Patient was examined both supine and standing with Valsalva. Incision well healed. No evidence of any recurrence. No evidence of any infection. Extrem Other: Left upper extremity in sling and brace. Assessment & Plan Assessment & Plan (1) Left inguinal hernia: Onset Date: 04/02/23 Comment: Dr. Ras Simmons Code(s): K40.90 - Unilateral inguinal hernia, without obstruction or gangrene, not specified as recurrent Plan The present time, patient was reassured. No evidence of any recurrence or infection. This may be related to his fall but at the present time, no further intervention is required. Patient is to slowly increase his activity levels and will follow-up p.r.n.. Coding Level of Care Code Global (70664) Diagnoses Left inguinal hernia K40.90
== END 2023-06-18 08:44 | disposition home or self-care (01) ==
PROVIDERS: Visit Provider Surgery
DX: K40.90 Unilateral inguinal hernia, without obstruction or gangrene, not specified as recurrent (principal)
CPT/HCPCS: 99024

== ENCOUNTER → 2023-06-18 08:31 | Outpatient (BNVA) | payer OTHER, SELFPAY | PROVIDERS: Visit Provider Surgery ==

== ENCOUNTER 2023-06-20 09:06 | Outpatient (AMB) | payer OTHER, SELFPAY ==
--- NOTE | 2023-06-20 09:08 | A.OFFPC_ITS ---
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 Patient was seen by the surgeon for left inguinal hernia status post repair 04/02/2023 ER note left elbow pain tripped info fell noted swelling in the medial and lateral aspect of the elbow x-ray did show impacted radial head fracture with associated joint effusion left sling is. Earlier this year October 2022 had left upper quadrant pain diagnosis of hepatosplenomegaly 21.3 cm spleen is 13.2. states surgery is better [facility] ([id number]) interpret [facility]. asking about the liver and spleen- [facility] Surgical History (Updated 06/20/23 @ 09:38 by Vel Madrid MD) Left inguinal hernia (04/02/23) History of hernia repair (~04/02/23) History of hand surgery Family History Mother No problems noted. Father No problems noted. Social History Housing: House Alcohol intake: never Patient Tobacco Use Status: Never used Tobacco e-Cigarette/Vaping Use: Never Used Second Hand Smoke Exposure: No service: No Current occupational status: employed Current occupational exposures/hazards: No Cognitive needs: No Hearing needs: No Vision needs: No Questionnaire PHQ-9 Over the last 2 weeks, how often have you been bothered by any of the following problems? 1. Little interest or pleasure in doing things: not at all 2. Feeling down, depressed, or hopeless: not at all 3. Trouble falling or staying asleep, or sleeping too much: not at all 4. Feeling tired or having little energy: not at all 5. Poor appetite or overeating: not at all 6. Feeling bad about yourself - or that you are a failure or have let yourself or your family down: not at all 7. Trouble concentrating on things, such as reading the newspaper or watching television: not at all 8. Moving or speaking so slowly that other people could have noticed. Or the opposite - being so fidgety or restless that you have been moving around a lot more than usual: not at all 9. Thoughts that you would be better off or of hurting yourself in some way: not at all Total score: 0 Depression Screening Interpretation: Negative Depression Screening Done: Yes 33055 - PHQ-9 Billing: Yes Source: Developed by Drs. Axel Payne, Paulina Theodore, Alon Pichardo and colleagues, with an educational aditya from [employer]. Thrive Questionnaire Date Thrive assessed: 03/12/23 AUDIT C Alcohol Use Questionnaire (AUDIT-C) 1. How often do you have a drink containing alcohol?: Never Total Score: 0 CRUZ-7 AMB Questionnaire CRUZ-7 Date CRUZ - 7 assessed: 03/12/23 Source: Developed by Drs. Axel Payne, Paulina Theodore, Alon Pichardo and colleagues, with an educational aditya from [employer]. Physical exam (Primary Care) Vital Signs: Last Vital Signs Pulse 68 06/20/23 09:09 BP 116/72 06/20/23 09:09 Pulse Ox 98 06/20/23 09:09 Oxygen Delivery Method Room Air 06/20/23 09:09 Care Plan Goal for BP management: L arm on a sling hand cannot fully make a fist BMI result Body Mass Index 25.3 Tobacco/Smoking Status: Tobacco use Status Tobacco use date assessed 03/12/23 06/20/23 09:15 Patient Tobacco Use Status Never used Tobacco 06/20/23 09:15 e-Cigarette/Vaping Use Never Used 06/20/23 09:15 PHQ-9: PHQ-9 Score PHQ-9: Total score 0 06/20/23 09:15 Depression Screening Interpretation: Negative Thrive Assessment: Date of Thrive Assessment Date Thrive assessed 03/12/23 06/20/23 09:15 Const General: alert; No acute distress Eyes Conjunctivae: conjunctivae normal Resp Auscultation: clear to auscultation bilaterally Cardio Rate: regular rate Rhythm: regular rhythm GI Inspection: Yes normal to inspection Extrem Other: Left posterior calf has engorged varicose veins Assessment and Plan Assessment & Plan (1) Hepatosplenomegaly: Code(s): R16.2 - Hepatomegaly with splenomegaly, not elsewhere classified Plan: advised to get US requested to ff up (2) Fracture of radial neck, left, closed: Code(s): S52.132A - Displaced fracture of neck of left radius, initial encounter for closed fracture Plan: presently on a sling (3) Left inguinal hernia: Onset Date: 04/02/23 Comment: Dr. Ras Simmons 03/2023 Code(s): K40.90 - Unilateral inguinal hernia, without obstruction or gangrene, not specified as recurrent Plan: this is followed up by the Surgeon (4) Varicose veins of left lower leg: Code(s): I83.92 - Asymptomatic varicose veins of left lower extremity Plan: advised to call the vascular surgeon Orders: Orders US abdomen complete Today R16.2 - Hepatomegaly with splenomegaly, not elsewhere classified, R79.89 - Other specified abnormal findings of blood chemistry Referrals Orthopedics Referral S52.132A - Displaced fracture of neck of left radius, initial encounter for closed fracture Coding Level of Care Code Est Pt Level 4 (92808) Diagnoses Hepatosplenomegaly R16.2 Fracture of radial neck, left, closed S52.132A Left inguinal hernia K40.90 Varicose veins of left lower leg I83.92
[2023-06-20 09:09] VITALS: BP 116/72; PULSE 68; O2SAT 98; BMI 25.3
== END 2023-06-20 09:59 | disposition home or self-care (01) ==
PROVIDERS: PCP Internal Medicine; Visit Provider Internal Medicine
DX: R16.2 Hepatomegaly with splenomegaly, not elsewhere classified (principal); S52.132A Displaced fracture of neck of left radius, initial encounter for closed fracture; K40.90 Unilateral inguinal hernia, without obstruction or gangrene, not specified as recurrent; I83.92 Asymptomatic varicose veins of left lower extremity
CPT/HCPCS: 99214

== ENCOUNTER 2023-07-01 08:41 | Outpatient (REF) | payer OTHER, SELFPAY ==
--- NOTE | ~2023-07-01 | XR_ITS ---
EXAMINATION: XR ELBOW, LEFT CLINICAL INFORMATION: Pain in left elbow COMPARISON: 05/25/2023 TECHNIQUE: AP, lateral, and oblique views of the left elbow. FINDINGS: There is interval healing of radial neck fracture with fracture line is still visualized and there is mild callus formation. Soft tissue calcification seen adjacent to the radial head. There is mild joint effusion persists. XR/XR elbow LT min 3V IMPRESSION: Interval healing of radial neck fracture
== END 2023-07-01 08:42 | disposition home or self-care (01) ==
LOC: HO.HOSX 08:41
PROVIDERS: Visit Provider Physician Assistant
DX: S52.125A Nondisplaced fracture of head of left radius, initial encounter for closed fracture (principal)
CPT/HCPCS: 73080; 99202

== ENCOUNTER 2023-07-01 15:08 | Outpatient (AMB) | payer OTHER, SELFPAY ==
--- NOTE | 2023-07-01 15:25 | MHC.OFFVIS ---
Intake Vital Signs 07/01/23 15:26 Height 6 ft 4 in Weight 208 lb BMI 25.3 Intake Visit Reasons: fc- fracture of neck of left radius Intake Note: Saul diaz 33 year old right hand dominant male presents today for an ER follow up of left elbow, DOI 05/25/23. Patient reports that he tripped and fell on his left elbow. He presented to [facility] where xrays were taken, placed in a splint and referred to orthopedics. Patient currently complaining of mild pain. 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 He was seen at ED where x-rays were performed and he was referred to our office. He was also placed in a splint which he has been wearing since his DOI. He currently states he has mild pain in his elbow. [facility] Surgical History Left inguinal hernia (04/02/23) History of hernia repair (~04/02/23) History of hand surgery Family History Mother No problems noted. Father No problems noted. Social History Housing: House Alcohol intake: never Patient Tobacco Use Status: Never used Tobacco e-Cigarette/Vaping Use: Never Used Second Hand Smoke Exposure: No service: No Current occupational status: employed Current occupational exposures/hazards: No Cognitive needs: No Hearing needs: No Vision needs: No Review of Systems Const All systems reviewed & are unremarkable except as noted in HPI and below Physical Exam Vital Signs: BMI result Body Mass Index 25.3 Const General: cooperative and no acute distress Orientation/consciousness: patient oriented x3 Resp Effort & Inspection: normal respiratory effort and able to speak in complete sentences Cardio Peripheral pulses: Peripheral pulses 2+ throughout Neuro General: patient oriented x3 Extrem Other: Left elbow: Skin intact, no open wounds. Mild tenderness over the radial head. No pain over the olecranon. No difficulty with flexion or extension, mild discomfort with supination and pronation. No pain along the distal radius or proximal humerus. Sensation and peripheral pulses present. Office Procedures Fracture Care Fracture Billing Code: Fracture Billing Code Results Reviewed Results Reviewed: Xrays were obtained in the office today and personally reviewed by me of the left elbow show non displaced radial head fracture Assessment & Plan Assessment & Plan (1) Left radial head fracture: Code(s): S52.122A - Displaced fracture of head of left radius, initial encounter for closed fracture Qualifiers: Encounter type: initial encounter Fracture type: closed Fracture alignment: nondisplaced Qualified Code(s): S52.125A - Nondisplaced fracture of head of left radius, initial encounter for closed fracture Plan He is going to disc use of splint and sling. I strongly encouraged he work on gentle ROM and had put in an order for occupational therapy to do so. I did give him a card to contact them if he does not hear then by the end of the week. He should avoid any type of heavy lifting or forceful gripping or twisting motion and I would like to see him/her back in 6 weeks with new x-rays, sooner if needed. Orders: Orders OT Evaluation and Treatment Today S52.122A - Displaced fracture of head of left radius, initial encounter for closed fracture XR elbow LT min 3V Today M25.522 - Pain in left elbow Patient Instructions: Scribed for Jazmyne Traylor PA-C, by Luis James director of graduate medical education, on 07/01/2023 at 3:15 PM EST. IJazmyne PA-C, have personally reviewed and agree with the information entered by the scribe. Coding Level of Care Code New Pt Level 3 (62199) Diagnoses Closed nondisplaced fracture of head of left radius, initial encounter S52.125A Encounter type: initial encounter Fracture type: closed Fracture alignment: nondisplaced CPT Codes Fracture Care - Fracture Billing Code: Fracture Billing Code ([id number])
[2023-07-01 15:26] VITALS: BMI 25.3
== END 2023-07-01 15:48 | disposition home or self-care (01) ==
PROVIDERS: Visit Provider Physician Assistant
DX: S52.125A Nondisplaced fracture of head of left radius, initial encounter for closed fracture (principal); W01.0XXA Fall on same level from slipping, tripping and stumbling without subsequent striking against object, initial encounter
CPT/HCPCS: 99203

== ENCOUNTER 2023-07-22 07:52 | Outpatient (REF) | payer OTHER, SELFPAY ==
--- NOTE | ~2023-07-22 | US_ITS ---
EXAMINATION: US ABDOMEN COMPLETE CLINICAL INFORMATION: Other specified abnormal findings of blood chemistry. COMPARISON: None available. TECHNIQUE: Real-time imaging of the abdominal viscera. FINDINGS: PANCREAS: Normal. ABDOMINAL AORTA: The proximal, mid, and distal segments are normal in caliber. INFERIOR VENA CAVA: Visualized portions are normal. LIVER: Normal. The liver is normal in size. The liver contour is normal. Parenchymal echogenicity is normal. No focal hepatic lesion. There is no intrahepatic biliary duct dilatation seen. GALLBLADDER: Normal. The gallbladder is physiologically distended without evidence of stones, sludge, polyps, wall thickening or pericholecystic fluid. COMMON BILE DUCT: Normal in caliber measuring 0.4 cm in diameter. RIGHT KIDNEY: Normal. No hydronephrosis. No renal calculi or focal parenchymal lesions. The kidney measures 12.1 cm in maximum dimension. LEFT KIDNEY: Normal. No hydronephrosis. No renal calculi or focal parenchymal lesions. The kidney measures 12.5 cm in maximum dimension. SPLEEN: Normal. The spleen measures 13.0 cm in maximum dimension. FREE FLUID: None. US/US abdomen complete IMPRESSION: There is borderline splenomegaly. The examination is otherwise unremarkable.
== END 2023-07-22 07:53 | disposition home or self-care (01) ==
LOC: HO.US 07:52
PROVIDERS: PCP Internal Medicine; Visit Provider Internal Medicine
DX: R79.89 Other specified abnormal findings of blood chemistry (principal); R16.2 Hepatomegaly with splenomegaly, not elsewhere classified
CPT/HCPCS: 76700

== ENCOUNTER 2023-08-08 14:05 | Outpatient (AMB) | payer SELFPAY ==
[2023-08-08 14:05] VITALS: BMI 25.0
--- NOTE | 2023-08-08 14:05 | A.OFFVIS_ITS ---
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 Complaints include pain over varicosities, swelling of lower extremities, cramping, fatigue, and heaviness of the lower extremities. 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 It is noted more so in left leg. Patient denies any previous venous surgery or injections. Patient denies any history of DVT/ PE. Patient denies any history of phlebitis. Trial of compression includes - [id number] They now present for vascular evaluation regarding their varicose veins. [facility] Surgical History Left inguinal hernia (04/02/23) History of hernia repair (~04/02/23) History of hand surgery Family History Mother No problems noted. Father No problems noted. Social History Housing: House Alcohol intake: never Patient Tobacco Use Status: Never used Tobacco e-Cigarette/Vaping Use: Never Used Second Hand Smoke Exposure: No service: No Current occupational status: employed Current occupational exposures/hazards: No Cognitive needs: No Hearing needs: No Vision needs: No Review of Systems Const Reports as per HPI ENT Reports no additional complaints Card Denies chest pain, Denies chest pain at rest and Denies chest pain with activity Resp Denies chest congestion and Denies cough GI Reports no additional complaints Musc Details: pain over varicosities, aching of lower extremities, swelling, cramping, he aviness and tiredness, itching Denies abnormal gait Skin/Breast Reports pruritus and Denies wounds Neuro Reports no additional complaints and Denies abnormal gait Psych Denies no additional complaints Physical Exam Vital Signs: BMI result Body Mass Index 25.0 Const General: cooperative, healthy appearing and comfortable Orientation/consciousness: oriented to person, oriented to place and oriented to time Neck Carotids: no bruits Chest Chest palpation & inspection: normal inspection of the chest and normal pal pation of entire chest wall Resp Effort & Inspection: normal respiratory effort and able to speak in complete sentences Cardio Rate: regular rate Heart sounds: S1 normal heart sound present and S2 normal heart sound present Peripheral pulses: Peripheral pulses 2+ throughout GI Inspection: Yes normal to inspection Skin Other: +2 edema, large rope-like varicosities greater than 4 mm large cluster in left calf CEAP Classification C4 - skin color changes Ep - Etiology Primary As - superficial veins P - reflux General skin exam: dry skin Neuro General: oriented to person, oriented to place and oriented to time Extrem Right lower extremity: full ROM, normal capillary refill and edema Left lower extremity: full ROM, normal capillary refill and edema Psych Mental Status: mental status grossly normal Assessment & Plan Assessment & Plan (1) Varicose veins of left lower extremity with inflammation: Code(s): I83.12 - Varicose veins of left lower extremity with inflammation Plan: In short, the patient has evidence of venous insufficiency. I have discussed the pathophysiology with the patient. In addition I have provided informational material regarding venous disease to the patient. We have discussed conservative measures including compression, elevation, and exercise. I have also provided a handout regarding appropriate use of compression stoc kings and where to purchase good compression stockings as well. I have taken the liberty of ordering venous insufficiency testing with the patient. They will follow up with me after testing. The patient had an opportunity to ask questions regarding the treatment plan. All questions were answered. Imaging studies, laboratory studies and physical exam results were discussed and reviewed in detail. No major barriers to understanding were identified. The patient expressed understanding and agreement with the above treatment plan. The patient is aware they should contact our office by phone for worsening of the current condition or the appearance of new symptoms. Thank you for allowing me to participate in the vascular care of this patient. If you have any questions or concerns regarding the treatment for the above condition please do not hesitate to contact me. The office telephone contact is [phone]. This note is constructed using voice recognition software. While every effort has been made to ensure accuracy, sisal picker errors may have been included. Thank you for allowing me to participate in the care of your patient. Yours sincerely, Rico Lopez MD, FACS, R.P.V.I. Orders: Orders US venous duplex LE BI 1 Week I83.12 - Varicose veins of left lower extremity with inflammation Coding Level of Care Code New Pt Level 4 (09169) Diagnoses Varicose veins of left lower extremity with inflammation I83.12
== END 2023-08-08 14:34 | disposition home or self-care (01) ==
PROVIDERS: Visit Provider Surgery Vascular Surgery
DX: I83.12 Varicose veins of left lower extremity with inflammation (principal)
CPT/HCPCS: 99203

== ENCOUNTER → 2023-08-08 14:05 | Outpatient (BNVA) | payer OTHER, SELFPAY | PROVIDERS: Visit Provider Surgery Vascular Surgery | DX: I83.12 Varicose veins of left lower extremity with inflammation (principal) | CPT/HCPCS: 99202 ==

== ENCOUNTER 2023-08-14 06:38 | Outpatient (REF) | payer OTHER, SELFPAY | END 2023-08-14 06:39 | disposition home or self-care (01) | LOC: HO.HOSX 06:38 | PROVIDERS: Visit Provider Physician Assistant | DX: M25.522 Pain in left elbow (principal); S52.125D Nondisplaced fracture of head of left radius, subsequent encounter for closed fracture with routine healing; X58.XXXD Exposure to other specified factors, subsequent encounter; Y93.9 Activity, unspecified; Y92.9 Unspecified place or not applicable; Y99.8 Other external cause status | CPT/HCPCS: 73080; 99212 ==

== ENCOUNTER 2023-08-14 14:32 | Outpatient (AMB) | payer SELFPAY ==
--- NOTE | 2023-08-14 14:54 | A.OFFVIS_ITS ---
Intake Vital Signs 08/14/23 14:55 Height 6 ft 4 in Weight 205 lb BMI 25.0 Intake Visit Reasons: ov- left radial head fx w xrays Intake Note: Saul is a 33 year old male who presents today for a follow up of his left radial head fracture. Patient reports that he is doing well , he has some mild pain with increased activity but over all is doing very well. Allergies No Known Allergies Allergy (Verified 08/08/23 14:33) HPI ov- left radial head fx w xrays HPI Details 33-year-old male who returns to the [facility] today for a follow-up of left radial head fracture. He states he has mild pain in his elbow which is aggravated with activities. He is doing well overall , he is working with PT who recommends he continue working on strength before returning to work. 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 [facility] Surgical History Left inguinal hernia (04/02/23) History of hernia repair (~04/02/23) History of hand surgery Family History Mother No problems noted. Father No problems noted. Social History Housing: House Alcohol intake: never Patient Tobacco Use Status: Never used Tobacco e-Cigarette/Vaping Use: Never Used Second Hand Smoke Exposure: No service: No Current occupational status: employed Current occupational exposures/hazards: No Cognitive needs: No Hearing needs: No Vision needs: No Review of Systems Const All systems reviewed & are unremarkable except as noted in HPI and below Physical Exam Vital Signs: BMI result Body Mass Index 25.0 Const General: cooperative and no acute distress Orientation/consciousness: patient oriented x3 Resp Effort & Inspection: normal respiratory effort and able to speak in complete sentences Cardio Peripheral pulses: Peripheral pulses 2+ throughout Neuro General: patient oriented x3 Extrem Other: Left elbow: Skin intact, no open wounds.No tenderness over the radial head. No p ain over the olecranon. No difficulty with flexion or extension, no discomfort with supination and pronation. No pain along the distal radius or proximal humerus. Sensation and peripheral pulses present. Results Reviewed Results Reviewed: Xrays were obtained in the office today and personally reviewed by me of the left elbow show stable fx pattern with interval healing. Assessment & Plan Assessment & Plan (1) Left radial head fracture: Code(s): S52.122A - Displaced fracture of head of left radius, initial encounter for closed fracture Qualifiers: Encounter type: subsequent encounter Fracture alignment: nondisplaced Fracture type: closed Fracture healing: with routine healing Qualified Code(s): S52.125D - Nondisplaced fracture of head of left radius, subsequent encounter for closed fracture with routine healing Plan He will continue working with occupational therapy to improve his strength training and he will return to work in 4 weeks if he is asymptomatic and see us back as needed if symptoms arise. Orders: Orders XR elbow LT min 3V Today M25.522 - Pain in left elbow Patient Instructions: Scribed for Jazmyne Traylor PA-C, by Luis James director of medical services, on 08/14/2023 at 3:30 PM EST. I, Jazmyne Traylor PA-C, have personally reviewed and agree with the information entered by the scribe. Coding Level of Care Code Global (64155) Diagnoses Closed nondisplaced fracture of head of left radius with routine healing, subsequent encounter S52.125D Encounter type: subsequent encounter Fracture alignment: nondisplaced Fracture type: closed Fracture healing: with routine healing
[2023-08-14 14:55] VITALS: BMI 25.0
== END 2023-08-14 15:13 | disposition home or self-care (01) ==
PROVIDERS: Visit Provider Physician Assistant
DX: S52.125D Nondisplaced fracture of head of left radius, subsequent encounter for closed fracture with routine healing (principal)
CPT/HCPCS: 99213

== ENCOUNTER 2023-08-28 09:00 | Outpatient (RCR) | payer OTHER, SELFPAY ==
--- NOTE | 2023-07-25 15:20 | MHC.OT.EP ---
[address] [phone] Occupational Therapy Plan of Care Patient Name: Saul Youngblood Date of Evaluation: 07/25/23 Diagnosis: Displaced radial head fracture Pain Location: 0-6 ache proximal forearm Pain Score: 6 Pain Scale Used: Numeric (0 - 10) Aggravating Factors: Elbow exercise, use of left with daily activities Alleviating Factors: Avoiding Assessment: 8 wks , 5 days s/p left displaced RH fx due to a fall. Pt working on gentle ROM the past few wks with good improvement in ROM. Pain at end ranges and light use of left hand Today he presents with elbow stiffness, WFLs and decreased cisco administrator strength due to pain. He is using his left dominant hand with light activities . 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 Frequency and Duration: The patient will be seen 2 x wk x 4 wks Short Term Goals: Demo indep with HEP for LUE Use of left UE assist with all bimanual ADL and light-mod homemaking Left cisco administrator to > 35 lb Alf Goals: Pain free left elbow ROM at end ranges Left elbow extension to <7 deg Left elbow flexion to > 135 deg Left cisco administrator to > 50 lb Lift and carry up to 8 lb Report mild difficulty with daily task with modifications as needed Treatment Plan: Therapeutic Exercise Therapeutic Activity Home Exercise Program Patient Education ADL Training MHP Soft Tissue Mobilization Electronically Signed By: Annika Rick OT CHT CLT Please Sign and return to therapist. Thank you once again for your referral.
--- NOTE | 2023-08-08 08:57 | MHC.OT.OP ---
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 Elbow ROM is improved to WNL .Discomfort at end ranges, with gripping, lifting greater than 2 lb and partial wt bearing on left hand. 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 [ End ] Short Term Goals: Demo indep with HEP for LUE MET Use of left UE assist with all bimanual ADL and light-mod homemaking met Left anglesmith helper to > 35 lb met Fpc Goals: Pain free left elbow ROM at end ranges Left elbow extension to <7 deg Left elbow flexion to > 135 deg MET Left anglesmith helper to > 50 lb Lift and carry up to 8 lb Report mild difficulty with daily task with modifications as needed Frequency and Duration: The patient will be seen 1x wk Treatment Plan: Therapeutic Exercise Therapeutic Activity Home Exercise Program Patient Education Electronically Signed By: Annika Rick OT CHT CLT Reviewed/agree with student documentation: Therapist:
--- NOTE | 2023-08-28 11:17 | MHC.OT.DC ---
[address] [phone] F: [phone] Occupational Therapy Discharge Note Patient Name: Saul Youngblood Provider: Jazmyne Traylor Diagnosis: Displaced radial head fracture Date of Surgery: Date of Evaluation: 07/25/23 Date of Discharge: 08/28/23 Treatments to Date: 7 Cancellations to Date: 0 No Shows to Date: 0 Discharge Status: Achieved Goals Improved Function Independent with HEP Discharge Summary: Doing very well, reports no limitation at home and has returned to swimming and light gym exercise using pain as a guide. 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 He reports he is happy with his improvement and feels confident with his HEP . 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 OT goals met. Electronically Signed By: Annika Rick OT CHT CLT Reviewed/agree with student documentation: Therapist: Please Sign and return to therapist, thank you for your referral.
== END 2023-08-28 11:18 | disposition home or self-care (01) ==
LOC: HO.OT 09:00
PROVIDERS: PCP Internal Medicine; Visit Provider Physician Assistant
DX: S52.122A Displaced fracture of head of left radius, initial encounter for closed fracture (principal)
CPT/HCPCS: 97110; 97166

== ENCOUNTER 2023-09-20 08:19 | Outpatient (REF) | payer OTHER, SELFPAY ==
--- NOTE | ~2023-09-20 | US_ITS ---
EXAMINATION: US LOWER EXTREMITY VENOUS (REFLUX EXAM), BILATERAL CLINICAL INDICATION: Chronic venous insufficiency with lower extremity varicose veins with inflammation COMPARISON: None. TECHNIQUE: Color flow triplex imaging and compression Doppler was performed to evaluate both the deep and the superficial systems bilaterally. To evaluate the superficial system, the examination was performed in the upright position. Color-flow Doppler ultrasound and compression ultrasound were utilized. In addition, maneuvers were utilized to demonstrate reflux. FINDINGS: 1. DEEP VENOUS ULTRASOUND OF THE RIGHT LOWER EXTREMITY: Common Femoral Vein: Compressible, normal respiratory variation and augmented flow. Femoral Vein: Compressible, normal color flow and augmentation. Popliteal Vein: Compressible, normal augmentation. Deep Reflux: There is no evidence of reflux in the deep system in either the common femoral vein, superficial femoral or the popliteal vein. There is no evidence of a Rodriguez's cyst. 2. SUPERFICIAL ULTRASOUND WITH DOPPLER OF RIGHT LOWER EXTREMITY: GREAT SAPHENOUS VEIN: Saphenofemoral Junction: 0.7 cm; Reflux: 0 ms Proximal Thigh: 0.4 cm; Reflux: 2148 ms Mid Thigh: 0.2 cm; Reflux: 2560 ms Above Knee: 0.2 cm; Reflux: 2584 ms At Knee: 0.4 cm; Reflux: 0 ms Below Knee: 0.5 cm; Reflux: 0 ms Mid Calf: 0.2 cm; Reflux: 0 ms Ankle: 0.3 cm; Reflux: 0 ms DUPLICATED MEDIAL GREAT SAPHENOUS VEIN: Diameter: None imaged Reflux: NA DUPLICATED LATERAL GREAT SAPHENOUS VEIN: Diameter: None imaged Reflux: NA SMALL SAPHENOUS VEIN: Saphenopopliteal Junction: 0.4 cm; Reflux: 0 ms Proximal: 0.3 cm; Reflux: 0 ms Distal: 0.2 cm; Reflux: 0 ms VEIN OF GIACOMINI: Size: NA Reflux: NA PERFORATORS: Location: None significant Size: NA Reflux: NA VARICOSITIES: Location: None imaged Size: NA Reflux: NA 3. DEEP VENOUS ULTRASOUND OF THE LEFT LOWER EXTREMITY: Common Femoral Vein: Compressible, normal respiratory variation and augmented flow. Femoral Vein: Compressible, normal color flow and augmentation. Popliteal Vein: Compressible, normal augmentation. Deep Reflux: There is severe deep venous reflux within the common femoral vein, mid superficial femoral vein and popliteal vein ranging from 1280 ms to 3204 ms There is no evidence of a Rodriguez's cyst. 4. SUPERFICIAL ULTRASOUND WITH DOPPLER OF LEFT LOWER EXTREMITY: GREAT SAPHENOUS VEIN: Saphenofemoral Junction: 0.8 cm; Reflux: 0 ms Proximal Thigh: 0.5 cm; Reflux: 0 ms Mid Thigh: 0.3 cm; Reflux: 0 ms Above Knee: 0.4 cm; Reflux: 0 ms At Knee: 0.3 cm; Reflux: 0 ms Below Knee: 0.3 cm; Reflux: 0 ms Mid Calf: 0.2 cm; Reflux: 0 ms Ankle: 0.2 cm; Reflux: 0 ms DUPLICATED MEDIAL GREAT SAPHENOUS VEIN: Diameter: None imaged Reflux: NA DUPLICATED LATERAL GREAT SAPHENOUS VEIN: Diameter: None imaged Reflux: NA SMALL SAPHENOUS VEIN: Saphenopopliteal Junction: 1.2 cm; Reflux: 2980 ms Proximal: 1.2 cm; Reflux: 3032 ms Distal: 0.8 cm; Reflux: 2144 ms VEIN OF GIACOMINI: Size: NA Reflux: NA PERFORATORS: Location: Mid calf Size: 0.3 Reflux: None VARICOSITIES: Location: Medial and posterior calf off the small saphenous vein and great saphenous vein Size: Ranging in size from 0.3 to 1.4 cm Reflux: Ranging from 1952 ms to 2428 ms US/US venous duplex LE BI IMPRESSION: Right: Segmental areas of reflux within the right great saphenous vein within the thigh as described above Left: Severe reflux throughout the deep veins of the left lower extremity. Severe reflux throughout the small saphenous vein. Multiple large branching varicose veins within the calf as described above
== END 2023-09-20 08:20 | disposition home or self-care (01) ==
LOC: HO.US 08:19
PROVIDERS: Visit Provider Surgery Vascular Surgery
DX: I83.12 Varicose veins of left lower extremity with inflammation (principal)
CPT/HCPCS: 93970

== ENCOUNTER 2023-10-10 10:49 | Outpatient (AMB) | payer OTHER, SELFPAY ==
[2023-10-10 10:50] VITALS: BP 120/72; PULSE 53; O2SAT 97; BMI 26.0
--- NOTE | 2023-10-10 10:50 | A.OFFPC_ITS ---
Vital Signs 3 10/10/23 10:50 Height 6 ft 4 in Weight 214 lb BMI 26.0 BP 120/72 Blood Pressure Location Lt brachial Position Sitting Pulse 53 Pulse Source Pulse Oximeter Pulse Oximetry (%) 97 Oxygen Delivery Method Room Air Intake Visit Reasons: Annual Exam Intake Note: Patient is here today for a physical. 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 Allergies No Known Allergies Allergy (Verified 10/10/23 10:51) Medication List - Last Reconciled 10/10/23 by Vel Madrid MD No Known Home Meds Tobacco use date assessed: 10/10/23 Dental Screening Dental Screen Date: 10/10/23 Did you have a dental visit in the last 12 months?: Yes Did you have a dental problem in the last 6 months where you did not have access to dental care?: No Was dental information given to patient?: Patient has dentist HPI Annual Exam 2 HPI0 Details 33-year-old overweight male with a histo ry of hepatosplenomegaly radial neck fracture left left inguinal hernia and varicose veins of the left lower leg coming in for follow-up. Last seen in June 2023. Review of the notes in September had an ultrasound of the legRight: Segmental areas of reflux within the right great saphenous vein within the thigh as described above Left: Severe reflux throughout the deep veins of the left lower extremity. Severe reflux throughout the small saphenous vein. Multiple large branching varicose veins within the calf as described above With the left radial neck fracture follows up with orthopedics sent for occupational therapy and had an ultrasound of the abdomen showing borderline splenomegaly otherwise negative. Patient is here for physical exam noted weight gain of 9 lb [facility] housing liaison Tee ([id number]) [facility] Medical History (Updated 10/10/23 @ 11:53 by Vel Madrid MD) Hepatosplenomegaly Surgical History Left inguinal hernia (04/02/23) History of hernia repair (~04/02/23) History of hand surgery Family History Mother No problems noted. Father No problems noted. Social History Housing: House Alcohol intake: never Patient Tobacco Use Status: Never used Tobacco e-Cigarette/Vaping Use: Never Used Second Hand Smoke Exposure: No service: No Current occupational status: employed Current occupational exposures/hazards: No Cognitive needs: No Hearing needs: No Vision needs: No Questionnaire PHQ-9 Over the last 2 weeks, how often have you been bothered by any of the following problems? 1. Little interest or pleasure in doing things: nearly every day 2. Feeling down, depressed, or hopeless: nearly every day 3. Trouble falling or staying asleep, or sleeping too much: not at all 4. Feeling tired or having little energy: not at all 5. Poor appetite or overeating: not at all 6. Feeling bad about yourself - or that you are a failure or have let yourself or your family down: not at all 7. Trouble concentrating on things, such as reading the newspaper or watching television: not at all 8. Moving or speaking so slowly that other people could have noticed. Or the opposite - being so fidgety or restless that you have been moving around a lot more than usual: not at all 9. Thoughts that you would be better off or of hurting yourself in some way: not at all Total score: 6 Depression Screening Interpretation: Negative Depression Screening Done: Yes [id number] - PHQ-9 Billing: Yes Source: Developed by Drs. Axel Payne, Paulina Theodore, Alon Pichardo and colleagues, with an educational aditya from [employer]. Thrive Questionnaire Date Thrive assessed: 10/10/23 I am a: Patient What is your living situation today?: I have a steady place to live Within the past 12 months, did the food you bought not last and you didn't have the money to get more?: Never true Within the past 12 months, did you worry whether your food would run out before you got money to buy more?: Never true Do you have trouble paying for medicines?: No Do you have trouble getting transportation to medical appointments?: No Do you have trouble paying your heating and electricity bill?: No Do you have trouble taking care of your child, family member or friend?: No Do you have trouble with day-to-day activities such as bathing, preparing meals, shopping, managing finances, etc.?: No Are you currently unemployed and looking for a job?: No Are you interested in more education?: No Please select the resources that you would like help with: None THRIVE Score: 0 AUDIT C Alcohol Use Questionnaire (AUDIT-C) 1. How often do you have a drink containing alcohol?: Never 3. How often do you have six or more drinks on one occasion?: Never Total Score: 0 CRUZ-7 AMB Questionnaire CRUZ-7 Date CRUZ - 7 assessed: 10/10/23 Feeling nervous, anxious, or on edge: 3 = Nearly every day Not being able to stop or control worryin = Nearly every day Worrying too much about different things: 0 = Not at all Trouble relaxin = Not at all Being so restless that it is hard to sit still: 0 = Not at all Becoming easily annoyed or irritable: 0 = Not at all Feeling afraid as if something awful might happen: 0 = Not at all Total CRUZ-7 score (0-4 normal; 5-9 mild; 10-14 moderate; 15-21 severe): 6 Source: Developed by Drs. Axel Payne, Paulina Theodore, Alon Pichardo and colleagues, with an educational aditya from [employer]. Review of Systems Const Denies poor appetite and Denies weakness Eyes Denies no additional complaints ENT Reports Normal hearing present, Denies dizziness, Denies nasal congestion, Denies tinnitus and Denies sore throat Card Denies chest pain, Denies syncope, Denies rapid heart rate and Denies dyspnea Resp Denies cough and Denies dyspnea GI Denies change in stool character, Reports constipation, Denies diarrhea, Denies nausea and Denies vomiting Denies dysuria and Denies urinary frequency Neuro Reports Normal hearing present, Denies confusion, Denies dizziness, Denies syncope and Denies weakness Psych Denies confusion Physical exam (Primary Care) Vital Signs: Last Vital Signs Pulse 53 10/10/23 10:50 BP 120/72 10/10/23 10:50 Pulse Ox 97 10/10/23 10:50 Oxygen Delivery Method Room Air 10/10/23 10:50 BMI result Body Mass Index 26.0 Tobacco/Smoking Status: Tobacco use Status Tobacco use date assessed 10/10/23 10/10/23 10:52 Patient Tobacco Use Status Never used Tobacco 10/10/23 10:52 e-Cigarette/Vaping Use Never Used 10/10/23 10:52 PHQ-9: PHQ-9 Score PHQ-9: Total score 6 10/10/23 11:32 Depression Screening Interpretation: Negative Thrive Assessment: Date of Thrive Assessment Date Thrive assessed 10/10/23 10/10/23 10:52 Const General: No confusion Orientation/consciousness: No confusion HENMT Head: Yes normocephalic Ears: external ears normal and TM's normal bilaterally Face and sinus: Yes normal facial exam Mouth: moist mucous membranes Throat: Yes tonsils normal Eyes Conjunctivae: conjunctivae normal Pupils: Equal, round and reactive pupils present and Pupil accommodation reflex normal Direct Ophthalmoscopy: normal light reflex Neck Neck: No lymphadenopathy Thyroid: Thyroid normal Chest Chest palpation & inspection: normal inspection of the chest Resp Effort & Inspection: normal respiratory effort and no audible wheezes Auscultation: clear to auscultation bilaterally, no crackles, no wheezes and lung sounds not diminished Cardio Rate: regular rate Rhythm: regular rhythm Peripheral pulses: radial pulses present and dorsalis pedis present GI Other: visual negative Palpation (GI): no masses Auscultation: normal bowel sounds and normoactive bowel sounds Rectal Exam - Male: Yes deferred Abdomen image: 2 1. hernia surgery scar Male General Exam: Yes normal external exam Skin General skin exam: no rashes or lesions noted Rashes: no rashes Neuro General: No confusion Cranial nerves: Yes Equal, round and reactive pupils present and Yes Normal hearing present Cognition (Neuro): normal cognition Gait exam (Neuro): Normal gait present Motor exam (neuro): 5/5 motor strength present throughout Deep tendon reflexes (DTR's): Right brachioradialis reflex intensity grade: 2+, Left brachioradialis reflex intensity grade: 2+, Right patellar reflex intensity grade: 2+ and Left patellar reflex intensity grade: 2+ Extrem General: No edema Assessment and Plan Assessment & Plan (1) Annual physical exam: Code(s): Z00.00 - Encounter for general adult medical examination without abnormal findings (2) Varicose veins of left lower extremity with inflammation: Code(s): I83.12 - Varicose veins of left lower extremity with inflammation Plan: Patient is being followed up by vascular surgeon (3) Left radial head fracture: Code(s): S52.122A - Displaced fracture of head of left radius, initial encounter for closed fracture Qualifiers: Encounter type: subsequent encounter Fracture type: closed Fracture alignment: nondisplaced Fracture healing: with routine healing Qualified Code(s): S52.125D - Nondisplaced fracture of head of left radius, subsequent encounter for closed fracture with routine healing Plan: Sent for occupational therapy and follows up with orthopedics Coding Level of Care Code Est Pt Prev Care [id number]([id number]) Diagnoses Annual physical exam Z00.00 Varicose veins of left lower extremity with inflammation I83.12 Closed nondisplaced fracture of head of left radius with routine healing, subsequent encounter S52.125D Encounter type: subsequent encounter Fracture type: closed Fracture alignment: nondisplaced Fracture healing: with routine healing
== END 2023-10-10 12:41 | disposition home or self-care (01) ==
PROVIDERS: Visit Provider Internal Medicine
DX: Z00.00 Encounter for general adult medical examination without abnormal findings (principal); I83.12 Varicose veins of left lower extremity with inflammation; S52.125D Nondisplaced fracture of head of left radius, subsequent encounter for closed fracture with routine healing
CPT/HCPCS: 99395

== ENCOUNTER 2023-10-23 09:09 | Outpatient (AMB) | payer OTHER, SELFPAY ==
[2023-10-23 09:48] VITALS: BMI 26.0
--- NOTE | 2023-10-23 09:48 | MHC.OFFVIS ---
Intake Vital Signs 10/23/23 09:48 Height 6 ft 4 in Weight 214 lb BMI 26.0 Intake Visit Reasons: follow up 09/20/2023 Intake Note: follow up 09/20/23, pt states Left LE is worse than the Right LE Apartment Maintenance Manager Required: Yes Apartment Maintenance Manager Language: Mexican Apartment Maintenance Manager Name: Ramonita [id number] Information Interpreted: clinical only Allergies No Known Allergies Allergy (Verified 10/23/23 09:50) HPI follow up [facility] 09/20/2023 HPI Details Very pleasant 33-year-old gentleman presents for follow-up regarding venous disease. He has significant large varicosities in particular the left calf which have been a source of pain and discomfort for him. He now presents for follow-up with venous insufficiency testing. 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 [employer] Medical History Hepatosplenomegaly Surgical History Left inguinal hernia (04/02/23) History of hernia repair (~04/02/23) History of hand surgery Family History Mother No problems noted. Father No problems noted. Social History Housing: House Alcohol intake: never Patient Tobacco Use Status: Never used Tobacco e-Cigarette/Vaping Use: Never Used Second Hand Smoke Exposure: No service: No Current occupational status: employed Current occupational exposures/hazards: No Cognitive needs: No Hearing needs: No Vision needs: No Review of Systems Const Reports as per HPI ENT Reports no additional complaints Card Denies chest pain, Denies chest pain at rest and Denies chest pain with activity Resp Denies chest congestion and Denies cough GI Reports no additional complaints Musc Details: pain over varicosities, aching of lower extremities, swelling, cramping, heaviness and tiredness, itching Denies abnormal gait Skin/Breast Reports pruritus and Denies wounds Neuro Reports no additional complaints and Denies abnormal gait Psych Denies no additional complaints Physical Exam Vital Signs: BMI result Body Mass Index 26.0 Const General: cooperative, healthy appearing and comfortable Orientation/consciousness: oriented to person, oriented to place and oriented to time Neck Carotids: no bruits Chest Chest palpation & inspection: normal inspection of the chest and normal palpation of entire chest wall Resp Effort & Inspection: normal respiratory effort and able to speak in complete sentences Cardio Rate: regular rate Heart sounds: S1 normal heart sound present and S2 normal heart sound present Peripheral pulses: Peripheral pulses 2+ throughout GI Inspection: Yes normal to inspection Skin Other: +2 edema, large rope-like varicosities greater than 4 mm left calf CEAP Classification C4 - skin color changes Ep - Etiology Primary As - superficial veins P - reflux General skin exam: dry skin Neuro General: oriented to person, oriented to place and oriented to time Extrem Right lower extremity: full ROM, normal capillary refill and edema Left lower extremity: full ROM, normal capillary refill and edema Psych Mental Status: mental status grossly normal Results Reviewed Results Reviewed: Brief summary of venous insufficiency testing is as follows: right great saphenous vein: Positive right small saphenous vein: negative right accessory vein: none present left great saphenous vein: negative left small saphenous vein: Positive left accessory vein: none present Please note there is no evidence of any venous aneurysms or significant tortuosity Assessment & Plan Assessment & Plan (1) Varicose veins of left lower extremity with inflammation: Code(s): I83.12 - Varicose veins of left lower extremity with inflammation Plan: This patient has varicose veins with inflammation. They continue to be a source of discomfort for the patient. The patient has tried conservative treatment with compression, leg elevation and exercise program for over 3 months time. They have been compliant with all treatment. This has provided minimal relief for the patient. I do not anticipate this course of treatment will alter the underlying etiology. The patient has been scheduled for lower extremity venous treatment inclusive of --- left small saphenous vein radiofrequency ablation. Risks, benefits, and complications of this procedure has been discussed in detail with the patient including but not limited to bleeding, infection, and the development of a DVT. The patient has demonstrated a clear understanding and has consented. We will schedule the patient as soon as possible. Thank you for allowing us to participate in this patient's care. If there are any questions or concerns please do not hesitate to contact us. Coding Level of Care Code Est Pt Level 4 (15256) Diagnoses Varicose veins of left lower extremity with inflammation I83.12
== END 2023-10-23 10:14 | disposition home or self-care (01) ==
PROVIDERS: Visit Provider Surgery Vascular Surgery
DX: I83.12 Varicose veins of left lower extremity with inflammation (principal)
CPT/HCPCS: 99214

== ENCOUNTER → 2023-10-23 09:09 | Outpatient (BNVA) | payer OTHER, SELFPAY | PROVIDERS: Visit Provider Surgery Vascular Surgery | DX: I83.12 Varicose veins of left lower extremity with inflammation (principal) | CPT/HCPCS: 99212 ==

== ENCOUNTER 2023-12-06 07:41 | Outpatient (AMB) | payer OTHER, SELFPAY ==
[2023-12-06 07:59] VITALS: BMI 26.0
--- NOTE | 2023-12-06 07:59 | A.OFFVIS_ITS ---
Vital Signs 12/06/23 07:59 Height 6 ft 4 in Weight 214 lb BMI 26.0 Intake Visit Reasons: Left SSV RFA Programming Instructor Required: No Accompanied by: Self / Same As Patient Allergies No Known Allergies Allergy (Verified 12/06/23 07:59) [facility] Medical History Hepatosplenomegaly Surgical History Left inguinal hernia (04/02/23) History of hernia repair (~04/02/23) History of hand surgery Family History Mother No problems noted. Father No problems noted. Social History Housing: House Alcohol intake: never Patient Tobacco Use Status: Never used Tobacco e-Cigarette/Vaping Use: Never Used Second Hand Smoke Exposure: No service: No Current occupational status: employed Current occupational exposures/hazards: No Cognitive needs: No Hearing needs: No Vision needs: No Physical Exam Vital Signs: BMI result Body Mass Index 26.0 Office Procedures Vascular Office Procedure Details Details: Diagnosis: Varicose veins with inflammation of left leg Procedure: Endovenous radiofrequency ablation of the left small saphenous vein(s) of the lower extremity with Venclose Anesthesia: Local infiltration 5 cc, Tumescent 400 cc. Estimated Blood Loss: Minimal The patient was transferred to the procedure suite and the insufficient small saphenous vein was mapped by ultrasound and diagrammed on the overlying skin. The depth and diameter of the vein(s) to be treated was documented. The varicose tributary veins and suitable access sites were identified and mapped as well. The patient was then positioned prone on the procedure table. The affected limb was prepped and draped in the usual sterile fashion. The RF catheter was placed on the sterile field, flushed and wiped down, prepared, and connected by a sterile cable. The patient was placed in a prone position and local anesthesia was instilled in the skin overlying the access site. A skin incision was made overlying the identified and mapped small saphenous vein entry site. The vein was accessed using ultrasound guidance and the Seldinger technique, a guide wire was introduced through the needle, which was then exchanged over the guide wire for a 6F sheath, which was secured in place. The guide wire was removed and the sheath was flushed. The RF catheter was placed into the vein through the sheath and preferentially, imaging was used to place the catheter tip just inferior to the saphenopopliteal junction. Additionally, it was confirmed by ultrasound guidance that the catheter tip was also placed a minimum of 1.5cm distal to the saphenopopliteal junction. After the RF catheter position was verified by ultrasound, tumescent anesthesia was infiltrated, under ultrasound guidance, precisely into the perivenous compartment along the entire length of vein from the entry site to the saphenofemoral junction until a halo of fluid was noted around the vein. The patient was appropriately position. After RF catheter position was again confirmed with ultrasound imaging, and under direct external compression along the length of the heating element, RF energy was applied. The vein was segmentally ablated by heating a 10 cm segment and then indexing the catheter forward by 9.5 cm until the treatment length is completed. Device temperature was maintained at 120 plus or minus 5 degrees C with an initial power level of 4W/cm dropping to below 2W/cm for each treatment. Total vein length treated 20 cm Total cycles of RF 4. Repeat ultrasound of the saphenous vein was performed, confirming successful treatment. The catheter and sheath were withdrawn and hemostasis established with direct pressure. After assuring hemostasis, the skin incision over the saphenous vein was closed with a bandage and a compression wrap was applied from the level of the foot to the most proximal level of the thigh. Discharge instructions were given to the patient inclusive of follow-up ultrasound and recommended follow-up with 56152 - Endovenous RF, 1st Vein All charges added?: Procedure code (CPT) selection complete Assessment & Plan Assessment & Plan (1) Varicose veins of left lower extremity with inflammation: Comment: 12/06/2023 - left small Radiofrequency ablation Code(s): I83.12 - Varicose veins of left lower extremity with inflammation Category: Medical Plan: See op note
== END 2023-12-06 08:43 | disposition home or self-care (01) ==
PROVIDERS: Visit Provider Surgery Vascular Surgery
DX: I83.12 Varicose veins of left lower extremity with inflammation (principal)
CPT/HCPCS: 36475

== ENCOUNTER → 2023-12-06 07:41 | Outpatient (BNVA) | payer OTHER, SELFPAY | PROVIDERS: Visit Provider Surgery Vascular Surgery | DX: I83.12 Varicose veins of left lower extremity with inflammation (principal) | CPT/HCPCS: 36475 ==

== ENCOUNTER 2023-12-09 13:38 | Outpatient (REF) | payer OTHER, SELFPAY ==
--- NOTE | ~2023-12-09 | US_ITS ---
EXAMINATION: TRIPLEX SCANNING OF LEFT LOWER EXTREMITY; SUPERFICIAL ULTRASOUND WITH DOPPLER OF LEFT LOWER EXTREMITY CLINICAL INFORMATION: Status post RF ablation of the left small saphenous vein 3 days ago on 12/06/2023 COMPARISON: 09/20/2023. TECHNIQUE: Color flow triplex imaging and compression Doppler were performed as well as superficial ultrasound with Doppler. FINDINGS: TRIPLEX SCANNING OF LEFT LOWER EXTREMITY: Respiratory variation, normal compression and augmented flow are noted throughout the lower extremity. The visualized common femoral vein, femoral vein, profunda femoral vein, popliteal vein and the calf veins show no evidence of deep venous thrombosis. There is no evidence of Rodriguez's cyst. SUPERFICIAL ULTRASOUND WITH DOPPLER OF LEFT LOWER EXTREMITY: The left small saphenous vein is occluded from the access site. Thrombus extends out of the treated small saphenous vein into the popliteal vein extending up into the distal femoral vein. The remainder of the deep venous system on the left is unremarkable US/US venous duplex LE LT IMPRESSION: The left small saphenous vein is occluded after ablation but thrombus extends from the small saphenous vein into the popliteal vein and distal femoral vein, consistent with acute DVT. This critical result was discussed with Dr. Lopez immediately after the exam and it was ascertained that the content and urgency of the report was understood at the time of direct communication.
== END 2023-12-09 13:39 | disposition home or self-care (01) ==
LOC: HO.US 13:38
PROVIDERS: Visit Provider Surgery Vascular Surgery
DX: M79.605 Pain in left leg (principal)
CPT/HCPCS: 93971

== ENCOUNTER 2023-12-19 12:10 | Outpatient (REF) | payer OTHER, SELFPAY ==
--- NOTE | ~2023-12-19 | US_ITS ---
EXAMINATION: US VENOUS ULTRASOUND WITH DOPPLER LOWER EXTREMITY, LEFT CLINICAL INFORMATION: Follow-up DVT COMPARISON: Previous studies from 12/09/2023, 09/20/2023 TECHNIQUE: Ultrasound of the deep veins is performed from the hip to the calf with compression sonography and color and pulse Doppler assessment. Spectral analysis with color-flow imaging is performed. FINDINGS: When compared to the previous examination there is improvement of left lower extremity thrombosis. The echogenic clot is visualized in the SVG graft vomiting in the vein. An clear and the left common femoral vein, femoral vein, profunda vein, mid thigh and popliteal vein. US/US venous duplex LE LT IMPRESSION: Improvement of DVT with residual clot in SPG. Incomplete resolution of DVT.
== END 2023-12-19 12:11 | disposition home or self-care (01) ==
LOC: HO.US 12:10
PROVIDERS: Visit Provider Surgery Vascular Surgery
DX: M79.605 Pain in left leg (principal)
CPT/HCPCS: 93971

== ENCOUNTER 2024-03-02 15:15 | Outpatient (AMB) | payer OTHER, SELFPAY ==
--- NOTE | 2024-03-02 15:46 | MHC.OFFVIS ---
Vital Signs 03/02/24 15:47 Height 6 ft 4 in Weight 214 lb BMI 26.0 Intake Visit Reasons: follow up s/p Left SSV RFA 12/06/23 Intake Note: follow up Left SSV RFA 12/06/23, pt states leg looks better and feels better Accompanied by: Self / Same As Patient Allergies No Known Allergies Allergy (Verified 03/02/24 15:48) HPI HPI follow up s/p Left SSV RFA 12/06/23: Details: Pleasant 33-year-old gentleman presents for follow-up regarding venous insufficiency. He is status post left small saphenous vein radiofrequency ablation. Did have a he hit which appears to have resolved on follow-up ultrasound. His previous studies were on 12/08 and subsequently on 12/18. He reports that the left leg feels significantly better. He does have residual varicosities on the left calf which have been a source of pain discomfort for him. [facility] Medical History Hepatosplenomegaly Surgical History Left inguinal hernia (04/02/23) History of hernia repair (~04/02/23) History of hand surgery Family History Mother No problems noted. Father No problems noted. Social History Housing: House Alcohol intake: never Patient Tobacco Use Status: Never used Tobacco e-Cigarette/Vaping Use: Never Used Second Hand Smoke Exposure: No service: No Current occupational status: employed Current occupational exposures/hazards: No Cognitive needs: No Hearing needs: No Vision needs: No Review of Systems Const Reports as per HPI ENT Reports no additional complaints Card Denies chest pain, Denies chest pain at rest and Denies chest pain with activity Resp Denies chest congestion and Denies cough GI Reports no additional complaints Musc Details: pain over varicosities, aching of lower extremities, swelling, cramping, heaviness and tiredness, itching Denies abnormal gait Skin/Breast Reports pruritus and Denies wounds Neuro Reports no additional complaints and Denies abnormal gait Psych Denies no additional complaints Physical Exam Vital Signs: BMI result Body Mass Index 26.0 Const General: cooperative, healthy appearing and comfortable Orientation/consciousness: oriented to person, oriented to place and oriented to time Neck Carotids: no bruits Chest Chest palpation & inspection: normal inspection of the chest and normal palpation of entire chest wall Resp Effort & Inspection: normal respiratory effort and able to speak in complete sentences Cardio Rate: regular rate Heart sounds: S1 normal heart sound present and S2 normal heart sound present Peripheral pulses: Peripheral pulses 2+ throughout GI Inspection: Yes normal to inspection Skin Other: +2 edema, large rope-like varicosities greater than 4 mm left calf CEAP Classification C4 - skin color changes Ep - Etiology Primary As - superficial veins P - reflux General skin exam: dry skin Neuro General: oriented to person, oriented to place and oriented to time Extrem Right lower extremity: full ROM, normal capillary refill and edema Left lower extremity: full ROM, normal capillary refill and edema Psych Mental Status: mental status grossly normal Results Reviewed Results Reviewed: Brief summary of venous insufficiency testing is as follows: right great saphenous vein: negative right small saphenous vein: negative right accessory vein: none present left great saphenous vein: negative left small saphenous vein: Ablated left accessory vein: none present Please note there is no evidence of any venous aneurysms or significant tortuosity Assessment & Plan Assessment & Plan (1) Varicose veins of left lower extremity with inflammation: Comment: 12/06/2023 - left small Radiofrequency ablation Code(s): I83.12 - Varicose veins of left lower extremity with inflammation Category: Medical Plan: This patient has varicose veins with inflammation. They continue to be a source of discomfort for the patient. The patient has tried conservative treatment with compression, leg elevation and exercise program for over 3 months time. They have been compliant with all treatment. This has provided minimal relief for the patient. I do not anticipate this course of treatment will alter the underlying etiology. The patient has been scheduled for lower extremity venous treatment inclusive of --- left leg microphlebectomy. Risks, benefits, and complications of this procedure has been discussed in detail with the patient including but not limited to bleeding, infection, and the development of a DVT. The patient has demonstrated a clear understanding and has consented. We will schedule the patient as soon as possible. Thank you for allowing us to participate in this patient's care. If there are any questions or concerns please do not hesitate to contact us. Coding Level of Care Code Est Pt Level 4 (14789) Diagnoses Varicose veins of left lower extremity with inflammation I83.12
[2024-03-02 15:47] VITALS: BMI 26.0
== END 2024-03-03 08:24 | disposition home or self-care (01) ==
PROVIDERS: Visit Provider Surgery Vascular Surgery
DX: I83.12 Varicose veins of left lower extremity with inflammation (principal)
CPT/HCPCS: 99214

== ENCOUNTER → 2024-03-02 15:15 | Outpatient (BNVA) | payer OTHER, SELFPAY | PROVIDERS: Visit Provider Surgery Vascular Surgery | DX: I83.12 Varicose veins of left lower extremity with inflammation (principal) | CPT/HCPCS: 99212 ==

== ENCOUNTER 2024-03-20 09:11 | Outpatient (AMB) | payer OTHER, SELFPAY ==
--- NOTE | 2024-03-20 09:12 | MHC.OFFVIS ---
Intake Visit Reasons: Left Microphlebectomy Accompanied by: Self / Same As Patient Allergies No Known Allergies Allergy (Verified 03/20/24 09:13) PFSH Medical History Hepatosplenomegaly Surgical History Left inguinal hernia (04/02/23) History of hernia repair (~04/02/23) History of hand surgery Family History Mother No problems noted. Father No problems noted. Social History Housing: House Alcohol intake: never Patient Tobacco Use Status: Never used Tobacco e-Cigarette/Vaping Use: Never Used Second Hand Smoke Exposure: No service: No Current occupational status: employed Current occupational exposures/hazards: No Cognitive needs: No Hearing needs: No Vision needs: No Office Procedures Vascular Office Procedure Details Details: Diagnosis: Left Leg varicose veins with inflammation Procedure: Left leg Microphlebectomy Anesthesia: Local Infiltration 20 cc, Tumescent: 0 cc. Varicose veins were marked in the standing position on the left leg and the patient was then placed in the prone position. The left lower extremity was prepared and draped to allow knee flexion in the sterile field. The patient had large superficial varicose veins with significant symptoms of pain. It was therefore determined to perform microphlebectomies of the clusters of varicose veins. The patient had bulging varicose veins which were previously marked in the standing position. A small stab incision was made longitudinally directly overlying the varicose vein in the calf and the varicose vein was grasped with a hemostat aided by a vein hook. It was then dissected as far proximally and distally as possible and avulsed. A total of 11 stab incisions were made and the procedure of stab phlebectomies was repeated 11 times. Hemostasis was checked and stab incision sites were closed with steri-strips and sterile dressing was given with gauze and krilex wrap followed by an ernestina bandage. There were no complications and blood loss was minimal. Post-Op instructions were given and a follow-up appointment was recommended. [id number] - Phleb Veins, Extrem - up to 20 All charges added?: Procedure code (CPT) selection complete Assessment & Plan Assessment & Plan (1) Varicose veins of left lower extremity with inflammation: Comment: 12/06/2023 - left small Radiofrequency ablation 03/20/2024 - left leg microphlebectomy Code(s): I83.12 - Varicose veins of left lower extremity with inflammation Category: Medical Plan: See op note Coding Level of Care Code Procedure Only Diagnoses Varicose veins of left lower extremity with inflammation I83.12 CPT Codes Details - Vascular 5: [id number] - Phleb Veins, Extrem - up to 20 ([id number])
== END 2024-03-20 10:50 | disposition home or self-care (01) ==
PROVIDERS: Visit Provider Surgery Vascular Surgery
DX: I83.12 Varicose veins of left lower extremity with inflammation (principal)
CPT/HCPCS: 37765

== ENCOUNTER → 2024-03-20 09:11 | Outpatient (BNVA) | payer OTHER, SELFPAY | PROVIDERS: Visit Provider Surgery Vascular Surgery | DX: I83.12 Varicose veins of left lower extremity with inflammation (principal) | CPT/HCPCS: 37765 ==

== ENCOUNTER 2024-04-09 14:44 | Outpatient (AMB) | payer OTHER, SELFPAY ==
--- NOTE | 2024-04-09 14:49 | MHC.OFFVIS ---
Vital Signs 04/09/24 14:50 Height 6 ft 4 in Weight 214 lb BMI 26.0 Intake Visit Reasons: 2 week follow up left micro Intake Note: 2 week follow up Left Micro 03/20/24 w/ Hx of Left SSV RFA 12/06/23. Pt states he is feeling better and VV have decreased although still has some rope like VV Accompanied by: Self / Same As Patient Allergies No Known Allergies Allergy (Verified 04/09/24 14:51) HPI HPI 2 week follow up left micro: Details: Patient presents for follow-up status post left leg microphlebectomy. Appears to be doing extremely well. No postprocedure issues. Pain and discomfort all appear to have resolved. PFSH Medical History Hepatosplenomegaly Surgical History Left inguinal hernia (04/02/23) History of hernia repair (~04/02/23) History of hand surgery Family History Mother No problems noted. Father No problems noted. Social History Housing: House Alcohol intake: never Patient Tobacco Use Status: Never used Tobacco e-Cigarette/Vaping Use: Never Used Second Hand Smoke Exposure: No service: No Current occupational status: employed Current occupational exposures/hazards: No Cognitive needs: No Hearing needs: No Vision needs: No Review of Systems Const All systems reviewed & are unremarkable except as noted in HPI and below Reports no additional complaints ENT Reports Normal hearing present Card Denies chest pain, Denies chest pain at rest, Denies chest pain with activity and Denies pedal edema Resp Denies cough GI Denies abdominal pain Musc Denies abnormal gait, Denies muscle cramps and Denies radiating pain into limb Skin/Breast Denies skin ulcer and Denies wounds Neuro Reports Normal hearing present and Denies abnormal gait Psych Reports no additional complaints Physical Exam Vital Signs: BMI result Body Mass Index 26.0 Const General: cooperative, healthy appearing and comfortable Orientation/consciousness: oriented to person, oriented to place and oriented to time HEENT Head: Yes normal to inspection Neck Neck: Yes normal visual inspection Carotids: no bruits Chest Chest palpation & inspection: normal inspection of the chest Resp Effort & Inspection: normal respiratory effort and able to speak in complete sentences Auscultation: clear to auscultation bilaterally, no crackles, no rales, no rhonchi and no wheezes Cardio Rate: regular rate Rhythm: regular rhythm Heart sounds: S1 normal heart sound present and S2 normal heart sound present Bruits: no carotid bruits Peripheral pulses: Peripheral pulses 2+ throughout GI Inspection: Yes normal to inspection Skin Wounds: no wounds Hair: normal Neuro General: oriented to person, oriented to place and oriented to time Cranial nerves: Yes CN's II-XII intact bilaterally and Yes Normal hearing present Cognition (Neuro): normal cognition Motor exam (neuro): 5/5 motor strength present throughout Extrem Other: venous exam: No significant superficial varicosities or spider telangiectasias, minimal edema General: No clubbing, No cyanosis and No edema Psych Appearance: grossly normal Mental Status: mental status grossly normal Speech and movement: Normal speech and movement present Assessment & Plan Assessment & Plan (1) Varicose veins of left lower extremity with inflammation: Comment: 12/06/2023 - left small Radiofrequency ablation 03/20/2024 - left leg microphlebectomy Code(s): I83.12 - Varicose veins of left lower extremity with inflammation Category: Medical Plan: The patient has done extremely well with all venous treatments. Patient's may often experience postprocedure phlebitic episodes and I have discussed with the patient use of warm compresses and NSAIDS if tolerated for pain discomfort. In addition, I have discussed continued conservative measures including use of compression, leg elevation, and exercise. The patient was also given an information sheet regarding appropriate use of compression stockings and future purchases. Thank you for allowing us to care for your patient with venous disease. Coding Level of Care Code Est Pt Level 3 (19196) Diagnoses Varicose veins of left lower extremity with inflammation I83.12
[2024-04-09 14:50] VITALS: BMI 26.0
== END 2024-04-09 15:10 | disposition home or self-care (01) ==
PROVIDERS: Visit Provider Surgery Vascular Surgery
DX: I83.12 Varicose veins of left lower extremity with inflammation (principal)
CPT/HCPCS: 99213

== ENCOUNTER → 2024-04-09 14:44 | Outpatient (BNVA) | payer OTHER, SELFPAY | PROVIDERS: Visit Provider Surgery Vascular Surgery | DX: I83.12 Varicose veins of left lower extremity with inflammation (principal) | CPT/HCPCS: 99212 ==

== ENCOUNTER 2024-10-13 10:55 | Outpatient (AMB) | payer OTHER, SELFPAY ==
[2024-10-13 11:07] VITALS: BP 118/72; PULSE 65; O2SAT 98; BMI 24.3
--- NOTE | 2024-10-13 11:07 | MHC.PC.OV ---
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 Required: Yes Scientific Programmer Analyst Language: Spanish Allergies No Known Allergies Allergy (Verified 10/13/24 11:07) Medication List - Last Reconciled 10/13/24 by Vel Madrid MD acetaminophen (Tylenol Extra Strength) 500 mg PO Q6H PRN Tobacco use date assessed: 10/13/24 Dental Screening Dental Screen Date: 10/13/24 Did you have a dental visit in the last 12 months?: Yes Did you have a dental problem in the last 6 months where you did not have access to dental care?: No Was dental information given to patient?: Patient has dentist HPI Annual Exam HPI Details Yuliet CAAL [id number] OCC DIZZY PFSH Medical History (Updated 10/13/24 @ 11:35 by Vel Madrid MD) Varicose veins of left lower leg Hepatosplenomegaly Surgical History Left inguinal hernia (04/02/23) History of hernia repair (~04/02/23) History of hand surgery Family History Mother No problems noted. Father No problems noted. Social History Housing: House Alcohol intake: never Patient Tobacco Use Status: Never used Tobacco Tobacco use type: Cigarette e-Cigarette/Vaping Use: Never Used Second Hand Smoke Exposure: No service: No Current occupational status: employed Current occupational exposures/hazards: No Cognitive needs: No Hearing needs: No Vision needs: No Questionnaire PHQ-9 Over the last 2 weeks, how often have you been bothered by any of the following problems? 1. Little interest or pleasure in doing things: not at all 2. Feeling down, depressed, or hopeless: not at all 3. Trouble falling or staying asleep, or sleeping too much: not at all 4. Feeling tired or having little energy: not at all 5. Poor appetite or overeating: not at all 6. Feeling bad about yourself - or that you are a failure or have let yourself or your family down: not at all 7. Trouble concentrating on things, such as reading the newspaper or watching television: not at all 8. Moving or speaking so slowly that other people could have noticed. Or the opposite - being so fidgety or restless that you have been moving around a lot more than usual: not at all 9. Thoughts that you would be better off or of hurting yourself in some way: not at all Total score: 0 Depression Screening Interpretation: Negative Depression Screening Done: Yes 91393 - PHQ-9 Billing: Yes Source: Developed by Drs. Axel Payne, Pualina Theodore, Alon Pichardo and colleagues, with an educational aditya from [employer]. Thrive Questionnaire Date Thrive assessed: 10/13/24 I am a: Patient What is your living situation today?: I have a steady place to live Within the past 12 months, did the food you bought not last and you didn't have the money to get more?: Never true Within the past 12 months, did you worry whether your food would run out before you got money to buy more?: Never true Do you have trouble paying for medicines?: No Do you have trouble getting transportation to medical appointments?: No Do you have trouble paying your heating and electricity bill?: No Do you have trouble taking care of your child, family member or friend?: No Do you have trouble with day-to-day activities such as bathing, preparing meals, shopping, managing finances, etc.?: No Are you currently unemployed and looking for a job?: No Are you interested in more education?: No Please select the resources that you would like help with: None Currently or been in a relationship where the following occur: No concerns reported THRIVE Score: 0 AUDIT C Alcohol Use Questionnaire (AUDIT-C) 1. How often do you have a drink containing alcohol?: Never 3. How often do you have six or more drinks on one occasion?: Never Total Score: 0 CRUZ-7 AMB Questionnaire CRUZ-7 Date CRUZ - 7 assessed: 10/13/24 Feeling nervous, anxious, or on edge: 0 = Not at all Not being able to stop or control worryin = Not at all Worrying too much about different things: 0 = Not at all Trouble relaxin = Not at all Being so restless that it is hard to sit still: 0 = Not at all Becoming easily annoyed or irritable: 0 = Not at all Feeling afraid as if something awful might happen: 0 = Not at all Total CRUZ-7 score (0-4 normal; 5-9 mild; 10-14 moderate; 15-21 severe): 0 Source: Developed by Drs. Axel Payne, Paulina Theodore, Alon Pichardo and colleagues, with an educational aditya from [employer]. CRUZ-7 Assessment Billing CRUZ-7 Assessment Tool: CRUZ-7 Assessment 84533 Review of Systems Const Denies poor appetite and Denies weakness Eyes Denies no additional complaints ENT Reports Normal hearing present, Denies dizziness, Denies nasal congestion, Denies tinnitus and Denies sore throat Card Denies chest pain, Denies syncope, Denies rapid heart rate and Denies dyspnea Resp Denies cough and Denies dyspnea GI Denies change in stool character, Reports constipation, Denies diarrhea, Denies nausea and Denies vomiting Denies dysuria and Denies urinary frequency Neuro Reports Normal hearing present, Denies confusion, Denies dizziness, Denies syncope and Denies weakness Psych Denies confusion Physical exam (Primary Care) Vital Signs: Last Vital Signs Pulse 65 10/13/24 11:07 BP 118/72 10/13/24 11:07 Pulse Ox 98 10/13/24 11:07 Oxygen Delivery Method Room Air 10/13/24 11:07 BMI result Body Mass Index 24.3 Tobacco/Smoking Status: Tobacco use Status Tobacco use date assessed 10/13/24 10/13/24 11:08 Patient Tobacco Use Status Never used Tobacco 10/13/24 11:08 Tobacco use type Cigarette 10/13/24 11:08 e-Cigarette/Vaping Use Never Used 10/13/24 11:08 PHQ-9: PHQ-9 Score PHQ-9: Total score 0 10/13/24 11:30 Depression Screening Interpretation: Negative Thrive Assessment: Date of Thrive Assessment Date Thrive assessed 10/13/24 10/13/24 11:08 Currently or been in a relationship where the following occur: No concerns reported Const General: No confusion Orientation/consciousness: No confusion HENMT Head: Yes normocephalic Ears: external ears normal and TM's normal bilaterally Face and sinus: Yes normal facial exam Mouth: moist mucous membranes Throat: Yes tonsils normal Eyes Conjunctivae: conjunctivae normal Pupils: Equal, round and reactive pupils present and Pupil accommodation reflex normal Direct Ophthalmoscopy: normal light reflex Neck Neck: No lymphadenopathy Thyroid: Thyroid normal Chest Chest palpation & inspection: normal inspection of the chest Resp Effort & Inspection: normal respiratory effort and no audible wheezes Auscultation: clear to auscultation bilaterally, no crackles, no wheezes and lung sounds not diminished Cardio Rate: regular rate Rhythm: regular rhythm Peripheral pulses: radial pulses present and dorsalis pedis present GI Palpation (GI): no masses Auscultation: normal bowel sounds and normoactive bowel sounds Rectal Exam - Male: Yes deferred Skin General skin exam: no rashes or lesions noted Rashes: no rashes Neuro General: No confusion Cranial nerves: Yes Equal, round and reactive pupils present and Yes Normal hearing present Cognition (Neuro): normal cognition Gait exam (Neuro): Normal gait present Motor exam (neuro): 5/5 motor strength present throughout Deep tendon reflexes (DTR's): Right brachioradialis reflex intensity grade: 2+, Left brachioradialis reflex intensity grade: 2+, Right patellar reflex intensity grade: 2+ and Left patellar reflex intensity grade: 2+ Extrem General: No edema Coding Level of Care Code Est Pt Prev Care 18-39y(09615) Diagnoses Annual physical exam Z00.00 Left leg DVT I82.402 Varicose veins of left lower extremity with inflammation I83.12 Additional Codes CRUZ-7 Assessment Billing - CRUZ-7 Assessment Tool: CRUZ-7 Assessment 84604 ([id number]) PHQ-9 - 14455 - PHQ-9 Billing: Yes ([id number]) Assessment & Plan Assessment & Plan (1) Annual physical exam: Code(s): Z00.00 - Encounter for general adult medical examination without abnormal findings Category: Medical (2) Left leg DVT: Comment: November 2023 status post radiofrequency ablation of the varicose veins Code(s): I82.402 - Acute embolism and thrombosis of unspecified deep veins of left lower extremity Category: Medical (3) Varicose veins of left lower extremity with inflammation: Comment: 12/06/2023 - left small Radiofrequency ablation 03/20/2024 - left leg microphlebectomy Code(s): I83.12 - Varicose veins of left lower extremity with inflammation Category: Medical Plan History of Present Illness The patient is a 34-year-old male presenting for a wellness exam. In November 2023, following a left leg radiofrequency ablation and microphlebectomy for varicose veins, an ultrasound revealed thrombus extending into the small saphenous vein, into the popliteal vein, and the distal femoral vein, indicating acute deep vein thrombosis (DVT). The DVT diagnosis was confirmed during this time, and a follow-up ultrasound in early December 2023 showed resolution of the thrombus. He reported having had a prior history of varicose veins and a left radial head fracture. His last blood work in March 2023 showed normal results in blood count, electrolytes, renal function, and blood sugar. The patient does not report new allergies and only used Tylenol sporadically for headaches. No new surgical interventions or diagnoses were noted since his last visit. Health Maintenance - Encouragement to drink adequate water daily - Advised to maintain a healthy diet, avoiding overly tasty and potentially unhealthy foods - Recommendation to stay active and engage in regular physical exercise, such as running - Discussed avoidance of smoking and alcohol as patient reports abstaining - Advised on seasonal flu risks, COVID-19, and RSV precautions - Caution regarding norovirus transmission prevention Social History - Non-smoker and non-drinker - Occasionally exercises by walking and jogging - Reports recent stress due to receiving criticism - Language barrier managed through Spanish 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 - Respiratory: Denies shortness of breath, cough, heartburn - Cardiovascular: Denies chest pain - Gastrointestinal: Denies nausea, vomiting, diarrhea - Genitourinary: Denies urinary frequency except very rare nocturia - Musculoskeletal: Denies current musculoskeletal pain - Sensory: No current vision or hearing problems Physical Exam General: Cooperative, healthy appearing, comfortable, no acute distress and well developed Orientation: Patient oriented x3 Limitations: No limitations Head: Normal to inspection Ears: Hearing grossly normal bilaterally Nose: Normal external nose present Face and sinus: Normal facial exam Eyes: Appearance normal, both eyes and all related structures Neck: Normal visual inspection and Yes full ROM Respiratory: Normal respiratory effort and able to speak in complete sentences. Clear to auscultation bilaterally Cardiovascular: Regular rate and rhythm. Normal S1 and S2 GI: Normal to inspection. Soft to palpation and nontender Skin: No rashes or lesions noted Neuro: Patient oriented x3 Extremities: Normal to inspection, history of varicose veins and left radial head fracture, left leg DVT noted in November 2023, post radiofrequency ablation and microphlebectomy. Results - Labs (March 2023): Normal blood count, electrolytes, renal function, and blood sugar levels Plan - Continued monitoring of varicose veins status post-radiofrequency ablation; patient to notify if any symptoms reoccur. - Since DVT addressed and resolved as per December 2023 ultrasound, no further intervention needed unless symptoms reoccur. - Maintain current lifestyle modifications discussed for heart health. - Regular follow-up for wellness and necessary diagnostics advised as per patient?s preference. Patient was informed and verbally consented to the use of an ambient scribe for clinic note documentation during this visit. Discussion Notes During our discussion, I emphasized the importance of maintaining a healthy lifestyle including adequate water intake, balanced diet, and regular physical activity like running, ensuring not to overexert. I also discussed precautions during flu season, especially given the current high incidence of RSV and COVID-19, advising on preventive measures against viral transmission. We talked about norovirus precautions, reinforcing the importance of good hygiene practices. The patient was encouraged to remain active and informed of considerations for joint health while running. No blood work was deemed necessary at this time unless patient preference. Important questions pertaining to headaches were explored, with patient reassurance given. I reinforced the significance of monitoring well-being in relation to stress. Patient Instructions - Continue drinking plenty of water and maintain a balanced diet. - Incorporate regular exercise into your routine and balance activity levels. - Avoid smoking, alcohol, and other recreational drugs. - Note any symptoms or changes related to varicose veins or leg health. - Practice good hygiene to prevent seasonal illnesses and norovirus infection. - Consult with changes or concerns regarding symptoms, particularly headaches, and report any new or worsening symptoms. - Return for a follow-up exam in a year unless symptoms require earlier consultation.
--- OUTSIDE RECORDS SUMMARY | 2024-10-13 13:14 | XMS_ITS | Clinical Summary ---
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 Name Role Phone Unavailable Primary Care Provider Unavailabl e Social History Tobacco Use Types Packs/Day Years Used Date Smoking Tobacco: Never Assessed Sex and Gender Information Value Date Recorded Sex Assigned at Not on file Legal Sex Male 2:11 AM EST Gender Identity Not on file Sexual Orientation Not on file Plan of Treatment Health Maintenance Due Date Last Done Comments DTaP,Tdap,and Td Vaccines (1 - Tdap) 2009 Hepatitis B Vaccines (1 of 3 - 19+ 3-dose series) 2009 COVID-19 Vaccine (2023-2 5 season) 2024 Influenza Vaccine (#1) 2024 HIB Vaccines Aged Out No longer eligi ble based on patient's age to complete this topic HPV Vaccines Aged Out No longer eligi ble based on patient's age to complete this topic Hepatitis A Vaccines Aged Out No long er eligible based on patient's age to complete this topic IPV Vaccines Aged Out No longer eligi ble based on patient's age to complete this topic MMR Vaccines Aged Out No longer eligi ble based on patient's age to complete this topic Meningococcal ACWY Vaccine Aged Out N o longer eligible based on patient's age to complete this topic Meningococcal B Vacine Aged Out No lo nger eligible based on patient's age to complete this topic Pneumococcal Vaccine: Pediat rics (0 to 5 Years) and At-Risk Patients (6 to 64 Years) Aged Out No longer eligible b ased on patient's age to complete this topic RSV Immunization Patients Un yessenia 20 months Aged Out No longer eligible b ased on patient's age to complete this topic Varicella Vaccines Aged Out No longer eligible based on patient's age to complete this topic
--- OUTSIDE RECORDS SUMMARY | 2024-10-13 13:14 | XMS_ITS | Data Portability ---
Author Organization [facility] [id number] Address [address] [place] [address] Assessment No assessment recorded. Plan of Treatment Reminders Order Date Submit Date Provider Last Modified By Organization Details Last Modified Time Details Appointments None record ed. Lab None record ed. Referral None record ed. Procedures None record ed. Surgeries None record ed. Imaging None record ed. Medication Orders None record ed. Patient TargetsNo targets recorded. Patient InstructionsNo instructions recorded. Reason for Referral None Reported. Procedures Surgical History Date Name Laterality Status Provider Name and Address Organization Details Recorded Time OC-UDS Send Out Template NON DOT completed ANGELANATHAN RODRIGUEZ [facility] 07/03/2024 12:43:53 Imaging Results None recorded. Procedure Notes None recorded. Medical Equipment None Reported. Vitals None Recorded Social History None recorded. Functional Status None recorded. Mental Status None recorded. Family History Nothing Reported. Medical History No medical history recorded. Past Encounters Encounter ID Performer Location Encounter Start Date Encounter Closed Date Diagnosis/Indication Diagnosis SNOMED-CT Code Diagnosis ICD10 Code Diagnosis Note [id number] [place] [id number] [address] 07/03/2024 12:18:46 07/03/2024 12:45:07 History and physical examination, occupation [id number] Z02.1 Health Concerns Section Related Observation LastModified by Organization Detai ls LastModified Time None Recorded Concern Status LastModified by Organization Details LastModified Time None Recorded Advance Directives Directive None Recorded Payers Encounter Date Sequence Insurance Name Policy Number Policy Demarco Covered Member ID Demarco Member ID Guarantor Name 07/03/2024 OC-ESCREEN [employer] Saul Haroonjose alberto
== END 2024-10-13 12:34 | disposition home or self-care (01) ==
PROVIDERS: Visit Provider Internal Medicine
DX: Z00.00 Encounter for general adult medical examination without abnormal findings (principal); I82.402 Acute embolism and thrombosis of unspecified deep veins of left lower extremity; I83.12 Varicose veins of left lower extremity with inflammation

== ENCOUNTER → 2024-10-13 10:55 | Outpatient (BNVA) | payer OTHER, SELFPAY | PROVIDERS: Visit Provider Internal Medicine | DX: Z00.00 Encounter for general adult medical examination without abnormal findings (principal); I82.402 Acute embolism and thrombosis of unspecified deep veins of left lower extremity; I83.12 Varicose veins of left lower extremity with inflammation | CPT/HCPCS: 96127; 99395 ==